=== PATIENT | female | born 1985 | race Caucasian/White ===

== ENCOUNTER 2016-06-29 05:10 | Inpatient (IN) | payer OTHER ==
[~2016-06-29] VITALS: Ht 160 cm; Wt 156.5 kg
[~2016-06-29 05:10] MED LIST: ACET325T96 PO; PRENTAB26 PO
[2016-06-29] MEDS ORDERED: LACTATED RINGER'S 1000ML 1,000 ML IV PRN (06:05)
[2016-06-29] MEDS ORDERED: LACTATED RINGER'S 1000ML 1,000 ML IV SCH ×3 (06:05→22:31)
[2016-06-29] MEDS ORDERED: CEFAZOLIN IV 2,000 MG in DEXTROSE 5% 50ML 50 ML IV STA (06:09)
[2016-06-29] MEDS ORDERED: CEFAZOLIN IV 1,000 MG in DEXTROSE 5% 50ML 50 ML IV PRN (06:15)
[2016-06-29 06:22] VITALS: Ht 160 cm; Wt 156.5 kg
[2016-06-29] MEDS ORDERED: MISOPROSTOLTAB 50 MCG TAB PO STA (06:40)
[2016-06-29 07:02] LABS: HEMATOCRIT 38.3 % (37-47); MEAN CELL VOLUME 87.6 fL (80-100); MEAN CORPUSCULAR HEMOGLOBIN 30.2 pg (25-34); MEAN CORPUSCULAR HGB CONC 34.5 g/dl (32-36); MEAN PLATELET VOLUME 10.2 fL (7.4-10.4); PLATELET COUNT 305 K/uL (130-400); RED BLOOD COUNT 4.37 M/uL (4.2-5.4)
[2016-06-29 07:35] LABS: BLOOD UREA NITROGEN 6 mg/dl (7-18); BUN/CREATININE RATIO 13.9 (10-20); CALCIUM 9.2 mg/dl (8.5-10.1); CARBON DIOXIDE 23 mmol/L (21-32); CHLORIDE 110 mmol/L (98-107); CREATININE 0.43 mg/dl (0.60-1.20); GLUCOSE 94 mg/dl (70-99); POTASSIUM 4.3 mmol/L (3.5-5.1); SODIUM 141 mmol/L (136-145)
[2016-06-29 07:38] LABS: ALB/GLOB RATIO 0.6 (0.9-2); ALKALINE PHOSPHATASE 107 U/L (45-117); ALT/SGPT 18 U/L (12-78); AST/SGOT 13 U/L (15-37)
[2016-06-29 08:21] LABS: BENZODIAZEPINE, URINE NEG (NEG); COCAINE,URINE NEG (NEG); PHENCYCLIDINE, URINE NEG (NEG)
--- NOTE | 2016-06-29 08:43 | Medical Student: [facility] ---
Med Student History & Physical Date of Service June 29, 2016. Chief Complaint LABOR History of Present Illness Source: patient Patient's is a with an ARMINDA of 06/28 by LMP at 40 weeks gestation Water broke at 4:30am 06/29 (test kit done at home was positive for amniotic fluid). Has not had care since 02/11 at 20 weeks gestation. 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: 15 LMP 09/22/15 No hx of abnormal pap or STDs Past Surgical History Hx of surgical leg repair (R) - increased swelling since accident as a teen Social History Smoking Status: Former Smoker Alcohol Use: none Drug Use: none Allergies Coded Allergies: Amoxicillin (Verified Allergy, Unknown, ., 06/29/16) Banana (Verified Allergy, Unknown, ., 06/29/16) Clarithromycin (Verified Allergy, Unknown, ., 06/29/16) Penicillins (Verified Allergy, Unknown, ., 06/29/16) Home Medications Acetaminophen Tab (Tylenol), 650 MG PO Q6 PRN for Pain Multivit/Min/Iron/Fol Ac/Pren ( Vitamin), 1 TAB PO DAILY Review of Systems Constitutional: No chills, No fever Respiratory: No cough Cardiovascular: No chest pain Abdomen: No nausea, No pain, No vomiting Genitourinary - Female: No dysuria Physical Exam Vital Signs: Afebrile 155-167 systolic, 112-96 diastolic (167/96 most recent) HR 10-117 (102 most recent) RR 20 General Appearance: WD/WN, no apparent distress Head: normocephalic, atraumatic Respiratory/Chest: lungs clear, normal breath sounds, no respiratory distress Cardiovascular: regular rate, rhythm, no edema Abdomen / GI: normal bowel sounds, non tender, soft Extremities: no calf tenderness, + pedal edema (+2) Monitoring External Monitor: Initially presented with category 1 strip (moderate variability, accels present , no decelerations) Laboratory Results 06/29/16 06:30 06/29/16 06:30 Test 06/29/16 05:55 06/29/16 06:30 Red Blood Count 4.37 M/uL (4.2-5.4) Mean Corpuscular Volume 87.6 fL (80-100) Mean Corpuscular Hemoglobin 30.2 pg (25-34) Mean Corpuscular Hemoglobin Concent 34.5 g/dl (32-36) RDW Standard Deviation 45.7 fL (36.4-46.3) RDW Coefficient of Variation 14.3 % (11.5-14.5) Mean Platelet Volume 10.2 fL (7.4-10.4) Anion Gap 8.0 mmol/L (3-11) Est Creatinine Clear Calc Drug Dose 286.5 ml/min Estimated GFR () > 150.0 Estimated GFR (Non- 137.4 BUN/Creatinine Ratio 13.9 (10-20) Calcium Level 9.2 mg/dl (8.5-10.1) Total Bilirubin 0.4 mg/dl (0.2-1) Aspartate Amino Transf (AST/SGOT) 13 U/L (15-37) Alanine Aminotransferase (ALT/SGPT) 18 U/L (12-78) Alkaline Phosphatase 107 U/L (45-117) Total Protein 6.7 gm/dl (6.4-8.2) Albumin 2.6 gm/dl (3.4-5.0) Globulin 4.1 gm/dl (2.5-4.0) Albumin/Globulin Ratio 0.6 (0.9-2) Assessment and Plan Patient is a 30 y/o at 40 weeks GA beginning labor. tracing Category 1 Admit pt to L&D, continue monitoring and toco.
[2016-06-29] MEDS ORDERED: LACTATED RINGER'S 1000ML 500 ML IV PRN ×2 (13:05→23:11)
[2016-06-29] MEDS ORDERED: OXYTOCIN 30 UNITS/500ML NSS IV PRN (13:15)
[2016-06-29] MEDS ORDERED: BUTORPHANOL TARTRATE 1 MG/ML VIAL IV PRN (19:15)
[2016-06-29] MEDS ORDERED: BUTORPHANOL TARTRATE 1 MG/ML VIAL ONE (19:26)
[2016-06-29] MEDS ORDERED: CITRIC ACID/SODIUM CITRATE 15 ML UDC ONE (21:02)
[2016-06-29] MEDS ORDERED: MoRPHine SULFATE PF 1 MG/ML 10 ML AMP/VIAL ONE (21:03)
[2016-06-29] MEDS ORDERED: FENTANYL CITRATE INJ 50 MCG/1 ML 2 ML VIAL ONE (21:03)
[2016-06-29] MEDS ORDERED: OXYTOCIN INJ 10 UNITS/ML VIAL ONE (21:08)
[2016-06-29] MEDS ORDERED: CITRIC ACID/SODIUM CITRATE 15 ML UDC PO STA (21:14)
[2016-06-29] MEDS ORDERED: CEFAZOLIN IV 3,000 MG in DEXTROSE 5% 50ML 50 ML IV STA (21:14)
[2016-06-29] MEDS ORDERED: FENTANYL CITRATE INJ 50 MCG/1 ML 2 ML VIAL IV PRN (21:15)
[2016-06-29] MEDS ORDERED: KETOROLAC TROMETHAMINE 30 MG/ML VIAL IV. PRN (21:15)
[2016-06-29] MEDS ORDERED: ATROPINE SULFATE 0.1 MG/ML 5ML SYR IV PRN (21:15)
[2016-06-29] MEDS ORDERED: EpHEDrine SULFATE INJ 50 MG/ML AMP IV PRN ×2 (21:15→23:15)
[2016-06-29] MEDS ORDERED: ONDANSETRON INJ 2 MG/ML 2 ML VIAL IV PRN ×2 (21:15→23:15)
[2016-06-29] MEDS ORDERED: PHENYLEPHRINE 100MCG/ML 5ML SYR ONE (22:05)
--- NOTE | 2016-06-29 22:30 | [facility] Post Operative Brief Note ---
Immediate Operative Summary Operative Date June 29, 2016. Pre-Operative Diagnosis Failure to progress Failure to descend PROM Post-Operative Diagnosis Failure to progress Failure to descend PROM Procedure(s) Performed Primary Caesarean Section Live female child at [address] 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 Ceron Estimated Blood Loss 600ml Findings normal pelvic anatomy Specimens A: Placenta-hold B: Cord blood C: Arterial and venous cord gases Drains Cooper Anesthesia Spinal Complication(s) None Disposition L&D
[2016-06-29] MEDS ORDERED: BENZOCAINE 20% AER SPR 82.5 GM CAN EXT PRN (22:45)
[2016-06-29] MEDS ORDERED: SUPERCREAM 0.870 % 15GM JAR EXT PRN (22:45)
[2016-06-29] MEDS ORDERED: LANOLIN OINT EXT PRN ×2 (22:45)
[2016-06-29] MEDS ORDERED: HYDROCORTISONE ACETATE 25 MG SUPP PR PRN (22:45)
[2016-06-29] MEDS ORDERED: PROMETHAZINE HCL INJ 25 MG in SODIUM CHLORIDE 0.9% 50ML 50 ML IV PRN (22:45)
[2016-06-29] MEDS ORDERED: MAGNESIUM HYDROXIDE SUSP 30 ML UDC PO PRN (22:45)
[2016-06-29] MEDS ORDERED: SENNA 8.6 MG TAB PO PRN (22:45)
--- NOTE | 2016-06-29 22:59 | HISTORY & PHYSICAL EXAMINATION ---
DATE OF ADMISSION: 06/29/2016 HISTORY OF PRESENT ILLNESS: Shweta presented to labor and delivery with spontaneous rupture of membranes. She was initially 1 cm, was admitted by Dr. Hair and was 40 weeks and 1 day. Her course in was complicated by the fact that she stopped her care just after the 20-week visit. She had an ultrasound where not all of the anatomy was fully visualized and then decided not to do further followup. I am unsure why this was the case. Because of this, we do not have full testing and the patient is also morbidly obese at 349 pounds. Group B strep swab was performed but she was treated on spec as it was decided that with an unknown status of rupture of membranes that she was treated with Ancef. Her labor progressed very slowly. She initially got to 2 and then 2.5 cm. She eventually reached 3-4 cm, but with an IUPC and scalp clip, we documented adequate contractions for well over 4 hours with the IUPC and still there was no descent of the baby, it remained high at -2 station and 3-4 cm. At this stage, I offered the patient a . I did offer the option of continuing labor as well and discussed the risks and benefits of both. PAST HISTORY: Has been before but no prior deliveries before. MEDICAL HISTORY: She is morbidly obese. REVIEW OF SYSTEMS: Negative. FAMILY HISTORY: Negative. SOCIAL HISTORY: Nonsmoker, nondrinker. PHYSICAL EXAMINATION: VITAL SIGNS: Stable. She is afebrile. CHEST: Clear. CARDIOVASCULAR: Normal rate and rhythm. No audible murmur. ABDOMEN: Gravid. CERVIX: 3-4 cm and -2 station. heart rate tones category 1. IMPRESSION AND PLAN: Reviewed the option and actually recommend at this stage. This is for failure to progress and failure to descend in the pelvis, I think this is a large baby. I offered the option of continuing labor, discussed the increased infection risk with this. Discussed the risks of including infection, injury to bowel, bladder, ureter, vessels, baby, deep vein thrombosis, and pulmonary embolus. Discussed increased risk with prolonged rupture of membranes and with morbid obesity, especially the risks of infection. Discussed risks, benefits and alternatives. The patient wishes to proceed with a section and we will make arrangements for this. [facility]
[2016-06-29] MEDS ORDERED: NALOXONE HCL INJ 1 MG in SODIUM CHLORIDE 0.9% 1000ML 1,000 ML IV PRN (23:11)
[2016-06-29] MEDS ORDERED: SODIUM CHLORIDE 0.9% 1000ML 1,000 ML IV PRN (23:11)
[2016-06-29] MEDS ORDERED: NALOXONE HCL INJ 0.08 MG in SYRINGE 1.8 ML IV PRN (23:11)
[2016-06-29] MEDS ORDERED: DC INTRASPINAL MORPHINE SCH (23:15)
[2016-06-29] MEDS ORDERED: NALBUPHINE HCL INJ 10 MG/ML AMP IV PRN (23:15)
[2016-06-29] MEDS ORDERED: NO NARCOTICS OR SEDATIVES SCH (23:15)
[2016-06-29] MEDS ORDERED: MoRPHine SULFATE PF 1 MG/ML 10 ML AMP/VIAL EPI PRN (23:15)
[2016-06-29] MEDS ORDERED: DiphenhydrAMINE HCL 50 MG/ML VIAL IV PRN (23:15)
[2016-06-29] MEDS ORDERED: NALOXONE HCL 0.4 MG/1 ML VIAL/CARP IV PRN (23:15)
[2016-06-29] MEDS ORDERED: MEPERIDINE HCL 25 MG/ML CARP IV PRN (23:15)
--- NOTE | 2016-06-29 23:15 | Anesthesiology Progress Note ---
Anesthesia Post Op Note Date & Time June 29, 2016 at 23:16 Vital Signs Pain Intensity: 8.0 Notes Mental Status: alert / awake / arousable, participated in evaluation Pt Amnestic to Procedure: Yes Nausea / Vomiting: adequately controlled Pain: adequately controlled Airway Patency, RR, SpO2: stable & adequate BP & HR: stable & adequate Hydration State: stable & adequate Neuraxial Anesthesia: was administered, sensory block is resolving Anesthetic Complications: no major complications apparent
[2016-06-30] VITALS (22 sets, daily range): BP systolic 110–137; BP diastolic 73–87; PULSE 90–101; TEMP 36.5–36.8; O2SAT 91–100
[2016-06-30] MEDS: OXYTOCIN INJ 20 UNITS in LACTATED RINGER'S 1000ML 1,000 ML IV SCH ×2 (00:11→08:55)
--- NOTE | 2016-06-30 00:31 | OPERATIVE REPORT ---
DATE OF OPERATION: 06/29/2016 PREOPERATIVE DIAGNOSIS: Premature rupture of membranes, failure to progress, failure to descend in labor. POSTOPERATIVE DIAGNOSES: Same. PROCEDURE: Primary low segment section. SURGEON: Dr. Villavicencio. ROPEMAN: Dr. Ceron. ESTIMATED BLOOD LOSS: 600 mL FINDINGS: Normal pelvic anatomy. SPECIMENS: Cord blood, cord gases. DRAINS: Cooper catheter. ANESTHETIC: Spinal. COMPLICATIONS: None. DISPOSITION: Labor and delivery. DESCRIPTION OF PROCEDURE: The patient was given a spinal anesthetic by Dr. Borges, a Cooper catheter inserted by nursing. She was prepped and draped in supine position with a leftward tilt. Three grams Ancef were given preoperatively and multimedia engineer out performed. Pfannenstiel skin incision made with scalpel, dissecting down through the subcutaneous fat to the fascia in the midline. The fascia was then dissected laterally with curved Mayos and fascia was released superiorly and inferiorly from the rectus muscles. Rectus muscles were then split. Peritoneal cavity entered in a superior location and then opening of the peritoneal cavity enlarged to allow exposure. Bladder retractor placed. Metzenbaums used to dissect away the bladder flap and then bladder retractor replaced. A low transverse incision made with the scalpel. Entry into the uterus was done bluntly with a hemostat and then opening of the incision of the hysterotomy site was done manually, bluntly with the steam conditioning operator's fingers. Baby was delivered without difficulty by flexing the head, there was some thin meconium, and also by pressure on the abdomen. Head was delivered, mouth and nares suctioned with bulb. There was no nuchal cord. Baby was then delivered by gentle traction. No excessive force. A live vigorous infant. Cord clamped and cut. Cord gases obtained. Cord blood obtained. Placenta removed. IV Pitocin started. Uterus exteriorized. We ensured, with a moist lap, that all placental material had been removed. Then uterus closed in the usual fashion, a running 0 Monocryl, locked, and a second reinforcing non-locked 0 Monocryl. After generous irrigation and suction the cul-de-sac and bladder flap regions were re-inspected. Hemostasis was excellent. Uterus placed back in the peritoneal cavity and reinspected and hemostatic. Fascia closed with 0 Vicryl, subcutaneous fat irrigated and closed with 2-0 Vicryl, skin closed with 4-0 subcuticular Monocryl, Steri-Strips applied. Sponge and instrument counts correct. Urine was clear at the end of procedure. I attest to the content of the Intraoperative Record and any orders documented therein. Any exceptio ns are noted below.
[2016-06-30 06:37] LABS: BASO % 0.2 %; BASO ABS # 0.02 K/uL (0-0.2); COMPLETE YES; EOS % 0.2 %; HEMATOCRIT 35.9 % (37-47); IG% 0.3 %; LYMPH % 24.3 %; LYMPH ABS # 3.14 K/uL (1.2-3.4); MEAN CELL VOLUME 88.2 fL (80-100); MEAN CORPUSCULAR HEMOGLOBIN 29.7 pg (25-34); MEAN CORPUSCULAR HGB CONC 33.7 g/dl (32-36); MEAN PLATELET VOLUME 9.9 fL (7.4-10.4); MONO % 8.8 %; NEUT % 66.2 %; PLATELET COUNT 245 K/uL (130-400); RED BLOOD COUNT 4.07 M/uL (4.2-5.4); WHITE BLOOD COUNT 12.94 K/uL (4.8-10.8)
--- NOTE | 2016-06-30 07:18 | Progress Note ---
Subjective June 30, 2016. Subjective conversation w/ patient, physical exam, lab review Ambulation: limited ambulation Voiding: garcia catheter in place Passing Gas: No Diet Tolerance: Regular Diet Lochia: Moderate Feeding Type: Breast Feeding Pain: improves with med Comment: Patient was seen at the bedside. No acute event overnight. Review of Systems Constitutional: No fever Respiratory: No cough, No shortness of breath Cardiac: No chest pain Breast: No breast lump Abdomen: No nausea, No pain, No vomiting Denies headache Objective Vital Signs Date Time Temp Pulse Resp B/P Pulse Ox O2 Delivery O2 Flow Rate FiO2 06/30/16 06:35 18 91 06/30/16 05:20 18 93 06/30/16 04:30 36.6 96 18 124/81 97 Room Air 06/30/16 04:00 18 94 06/30/16 03:05 18 92 06/30/16 02:10 20 91 06/30/16 02:10 36.8 90 20 137/83 91 Room Air 06/30/16 01:45 18 91 06/30/16 00:45 93 Room Air 06/30/16 00:45 18 93 06/30/16 00:45 36.7 92 18 110/73 93 Room Air 06/30/16 00:45 93 Room Air Physical Exam General Appearance: WELL-APPEARING, WD/WN, NO APPARENT DISTRESS, obese Respiratory/Chest: chest non-tender, lungs clear, normal breath sounds, no respiratory distress Cardiovascular: regular rate, rhythm Abdomen: normal bowel sounds, non tender, soft Fundus: Firm, Tender, Relation to Umbilicus (difficult to palpate) Incision Description: Clean, Dry & Intact Extremities: non-tender, no calf tenderness Laboratory Results Last 24 Hours Test 06/30/16 06:21 White Blood Count 12.94 K/uL Red Blood Count 4.07 M/uL Hemoglobin 12.1 g/dL Hematocrit 35.9 % Mean Corpuscular Volume 88.2 fL Mean Corpuscular Hemoglobin 29.7 pg Mean Corpuscular Hemoglobin Concent 33.7 g/dl Platelet Count 245 K/uL Mean Platelet Volume 9.9 fL Neutrophils (%) (Auto) 66.2 % Lymphocytes (%) (Auto) 24.3 % Monocytes (%) (Auto) 8.8 % Eosinophils (%) (Auto) 0.2 % Basophils (%) (Auto) 0.2 % Neutrophils # (Auto) 8.57 K/uL Lymphocytes # (Auto) 3.14 K/uL Monocytes # (Auto) 1.14 K/uL Eosinophils # (Auto) 0.03 K/uL Basophils # (Auto) 0.02 K/uL RDW Standard Deviation 45.9 fL RDW Coefficient of Variation 14.2 % Immature Granulocyte % (Auto) 0.3 % Immature Granulocyte # (Auto) 0.04 K/uL Medications Current Inpatient Medications Medications (Trade) Dose Ordered Sig/Anjum Route Start Time Stop Time Status Last Admin Dose Admin Oxytocin 30 units 30 units UD PRN IV 06/29/16 13:15 07/29/16 13:14 06/29/16 13:38 30 UNITS Lactated Ringer's 1,000 ml @ 1,000 mls/hr Q1H IV 06/29/16 20:41 07/29/16 20:40 Oxytocin 20 units/ Lactated Ringer's 1,002 ml @ 125 mls/hr Q8H1M IV 06/29/16 22:31 07/29/16 22:30 06/30/16 00:11 125 MLS/HR Lactated Ringer's (Lr 1000ml) 1,000 ml @ 125 mls/hr Q8H IV 06/29/16 22:31 07/29/16 22:30 Ketorolac Tromethamine (Toradol Inj) 30 mg Q6H PRN IV. 06/30/16 16:00 07/05/16 15:59 Meperidine HCl (Demerol Inj) 50 mg Q4H PRN IV 06/30/16 16:00 07/14/16 15:59 Meperidine HCl (Demerol Inj) 75 mg Q4H PRN IV 06/30/16 16:00 07/14/16 15:59 Oxycodone/ Acetaminophen (Percocet 5-325mg Tab) 1 tab Q4H PRN PO 06/30/16 16:00 07/14/16 15:59 Oxycodone/ Acetaminophen (Percocet 5-325mg Tab) 2 tab Q4H PRN PO 06/30/16 16:00 07/14/16 15:59 Ibuprofen 600 mg 600 mg Q4H PRN PO 06/29/16 22:45 07/29/16 22:44 Promethazine HCl/ Sodium Chloride (Phenergan Inj/ Nss 50ml) 51 ml @ 204 mls/hr Q4H PRN IV 06/29/16 22:45 07/29/16 22:44 Ondansetron HCl (Zofran Inj) 4 mg Q4H PRN IV 06/30/16 16:00 07/30/16 15:59 Prenat Multivit/ [place]/Iron/Folic Ac ( Vitamin Tab) 1 tab DAILY PO 06/30/16 08:00 07/30/16 07:59 Bisacodyl (Dulcolax Tab) 5 mg HS ONCE PO 06/30/16 22:00 06/30/16 22:01 Bisacodyl (Dulcolax Supp) 10 mg PRN PRN MA 07/01/16 22:45 07/31/16 22:44 Docusate Sodium (coLACE CAP) 100 mg BID PO 06/30/16 08:00 07/30/16 07:59 Magnesium Hydroxide (Milk Of Magnesia Susp) 30 ml HS PRN PO 06/29/16 22:45 07/29/16 22:44 Cocaine HCl (Supercream 0.870% Cr) BID PRN EXT 06/29/16 22:45 07/13/16 22:44 Lanolin (Lanolin Oint) PRN PRN EXT 06/29/16 22:45 07/29/16 22:44 Hydrocortisone Acetate (Anusol Hc Supp) 25 mg BID PRN MA 06/29/16 22:45 07/29/16 22:44 Benzocaine (Dermoplast Aero Spr) 1 appln PRN PRN EXT 06/29/16 22:45 07/29/16 22:44 Zolpidem Tartrate (Ambien Tab) 5 mg HSZ PRN PO 06/30/16 16:00 07/30/16 15:59 Simethicone (Mylicon Chew Tab) 80 mg QID PO 06/30/16 08:00 07/30/16 08:59 Diphenhydramine HCl (Benadryl Cap) 25 mg QID PRN PO 06/30/16 16:00 07/30/16 15:59 Diphenhydramine HCl (Benadryl Inj) 25 mg QID PRN IV 06/30/16 16:00 07/30/16 15:59 Senna (Senokot Tab) 17.2 mg HS PRN PO 06/29/16 22:45 07/29/16 22:44 Naloxone HCl (Narcan Inj) 0.1 mg UD PRN IV 06/29/16 23:15 06/30/16 16:00 Diphenhydramine HCl (Benadryl Inj) 25 mg Q6H PRN IV 06/29/16 23:15 06/30/16 16:00 Nalbuphine HCl 5 mg 5 mg Q10M PRN IV 06/29/16 23:15 06/30/16 16:00 Naloxone HCl/ Sodium Chloride (Narcan Inj/Nss 1000ml) 1,002.5 ml @ 50 mls/hr Q20H3M PRN IV 06/29/16 23:11 06/30/16 16:00 Ondansetron HCl (Zofran Inj) 4 mg Q6H PRN IV 06/29/16 23:15 06/30/16 16:00 Ketorolac Tromethamine (Toradol Inj) 30 mg Q6H PRN IV. 06/29/16 23:15 06/30/16 16:00 Meperidine HCl (Demerol Inj) 25 mg Q15M PRN IV 06/29/16 23:15 06/30/16 16:00 Miscellaneous Information (Dc Intraspinal Morphine) 1 ea ONE N/A 06/29/16 23:15 06/30/16 16:00 Miscellaneous Information 1 ea 1 ea UD N/A 06/29/16 23:15 06/30/16 16:00 Naloxone HCl 0.08 mg/Syringe 2 ml @ 1 mls/min Q2M PRN IV 06/29/16 23:11 06/30/16 16:00 Lactated Ringer's (Lr 1000ml) 500 ml @ 999 mls/hr Q31M PRN IV 06/29/16 23:11 06/30/16 16:00 Ephedrine Sulfate (EpHEDrine SULFATE INJ) 10 mg Q5M PRN IV 06/29/16 23:15 06/30/16 16:00 Morphine Sulfate TODAY PRN EPI 06/29/16 23:15 Sodium Chloride (Nss 1000ml) 1,000 ml @ 15 mls/hr Q24H PRN IV 06/29/16 23:11 06/30/16 16:00 Assessment and Plan Post-Op Day#: 1 Continue Routine Care: A/P: This is a 30 y/o female, , s/p . She is ambulating and clinically stable. Plan: - Vitals signs are reviewed and WNL (Tmax 36.8 ) - Last Hgb is 12.1 - Blood type O+, GBS unknown, Rubella Immune - Routine care - Encourage ambulation, monitor and control pain with medication as needed , continue with regular diet as tolerated and monitor lochia - Stool softeners and sitz bath recommended - Encourage breast feeding and educate about breast feeding Resident Physician Supervision Note: I interviewed and examined the patient. Discussed with Dr. Kang and agree with findings and plan as documented in the note. Any exceptions or clarifications are listed here: [None] Documented By: Marty Villavicencio
[2016-06-30] MEDS: KETOROLAC TROMETHAMINE 30 MG/ML VIAL IV. PRN ×2 (07:44→15:45)
[2016-06-30] MEDS: SIMETHICONE 80 MG CHEW PO SCH ×4 (08:55→19:08)
[2016-06-30] MEDS: DOCUSATE SODIUM 100 MG CAP PO SCH ×2 (08:55→19:08)
[2016-06-30] MEDS: PRENATAL VITAMIN TAB PO SCH (08:56)
[2016-06-30] MEDS ORDERED: OXYCODONE/ACETAMINOPHEN 5-325 TAB PO PRN (16:00)
[2016-06-30] MEDS ORDERED: KETOROLAC TROMETHAMINE 30 MG/ML VIAL IV. PRN (16:00)
[2016-06-30] MEDS ORDERED: DiphenhydrAMINE HCL 50 MG/ML VIAL IV PRN (16:00)
[2016-06-30] MEDS ORDERED: MEPERIDINE HCL 50 MG/ML CARP IV PRN ×2 (16:00)
[2016-06-30] MEDS ORDERED: ONDANSETRON INJ 2 MG/ML 2 ML VIAL IV PRN (16:00)
[2016-06-30] MEDS ORDERED: ZOLPIDEM TARTRATE 5 MG TAB PO PRN (16:00)
[2016-06-30] MEDS: OXYCODONE/ACETAMINOPHEN 5-325 TAB PO PRN (20:23)
[2016-06-30] MEDS ORDERED: BISACODYL 5 MG TABEC PO ONE (22:00)
[2016-07-01 06:40] LABS: HEMATOCRIT 36.6 % (37-47)
--- NOTE | 2016-07-01 06:51 | Progress Note ---
Subjective July 01, 2016. Subjective conversation w/ patient, physical exam, lab review Ambulation: ambulating normally Voiding: no voiding problems Passing Gas: Yes Diet Tolerance: Regular Diet Lochia: Small Feeding Type: Breast Feeding Pain: discomfort Comment: Patient was seen at the bedside. No acute event overnight. Review of Systems Constitutional: No fever Respiratory: No cough, No shortness of breath Cardiac: No chest pain Breast: No breast lump Abdomen: No nausea, No pain, No vomiting Female : No dysuria, No urinary frequency Denies headache Objective Vital Signs Date Time Temp Pulse Resp B/P Pulse Ox O2 Delivery O2 Flow Rate FiO2 06/30/16 23:50 36.5 96 18 114/79 97 Room Air 06/30/16 23:50 97 Room Air 06/30/16 19:15 36.7 101 18 113/79 97 Room Air 06/30/16 16:00 36.6 99 18 132/75 95 Room Air 06/30/16 15:25 Room Air 06/30/16 15:25 16 100 06/30/16 14:35 16 100 06/30/16 13:35 16 100 06/30/16 12:35 16 97 06/30/16 12:00 36.6 98 18 132/87 96 Room Air 06/30/16 11:35 16 96 06/30/16 10:35 16 97 06/30/16 09:35 18 96 06/30/16 08:35 18 97 06/30/16 08:12 36.7 92 17 124/80 97 Room Air 06/30/16 07:25 16 96 06/30/16 07:25 96 Room Air Physical Exam General Appearance: WELL-APPEARING, WD/WN, NO APPARENT DISTRESS, obese Respiratory/Chest: chest non-tender, lungs clear, normal breath sounds, no respiratory distress Cardiovascular: regular rate, rhythm Abdomen: normal bowel sounds, non tender, soft Fundus: Firm, Non-Tender, Relation to Umbilicus (about 1cm below U, difficult to palpate) Incision Description: Clean, Dry & Intact Extremities: non-tender, no calf tenderness Laboratory Results Last 24 Hours Test 07/01/16 06:05 Hemoglobin 12.1 g/dL Hematocrit 36.6 % Medications Current Inpatient Medications Medications (Trade) Dose Ordered Sig/Anjum Route Start Time Stop Time Status Last Admin Dose Admin Oxytocin 30 units 30 units UD PRN IV 06/29/16 13:15 07/29/16 13:14 06/29/16 13:38 30 UNITS Lactated Ringer's 1,000 ml @ 1,000 mls/hr Q1H IV 06/29/16 20:41 07/29/16 20:40 Oxytocin 20 units/ Lactated Ringer's 1,002 ml @ 125 mls/hr Q8H1M IV 06/29/16 22:31 07/29/16 22:30 06/30/16 08:55 125 MLS/HR Lactated Ringer's (Lr 1000ml) 1,000 ml @ 125 mls/hr Q8H IV 06/29/16 22:31 07/29/16 22:30 Ketorolac Tromethamine (Toradol Inj) 30 mg Q6H PRN IV. 06/30/16 16:00 07/05/16 15:59 Meperidine HCl (Demerol Inj) 50 mg Q4H PRN IV 06/30/16 16:00 07/14/16 15:59 Meperidine HCl (Demerol Inj) 75 mg Q4H PRN IV 06/30/16 16:00 07/14/16 15:59 Oxycodone/ Acetaminophen (Percocet 5-325mg Tab) 1 tab Q4H PRN PO 06/30/16 16:00 07/14/16 15:59 06/30/16 20:23 1 TAB Oxycodone/ Acetaminophen (Percocet 5-325mg Tab) 2 tab Q4H PRN PO 06/30/16 16:00 07/14/16 15:59 Ibuprofen 600 mg 600 mg Q4H PRN PO 06/29/16 22:45 07/29/16 22:44 Promethazine HCl/ Sodium Chloride (Phenergan Inj/ Nss 50ml) 51 ml @ 204 mls/hr Q4H PRN IV 06/29/16 22:45 07/29/16 22:44 Ondansetron HCl (Zofran Inj) 4 mg Q4H PRN IV 06/30/16 16:00 07/30/16 15:59 Prenat Multivit/ [place]/Iron/Folic Ac ( Vitamin Tab) 1 tab DAILY PO 06/30/16 08:00 07/30/16 07:59 06/30/16 08:56 1 TAB Bisacodyl (Dulcolax Supp) 10 mg PRN PRN ID 07/01/16 22:45 07/31/16 22:44 Docusate Sodium (coLACE CAP) 100 mg BID PO 06/30/16 08:00 07/30/16 07:59 06/30/16 19:08 100 MG Magnesium Hydroxide (Milk Of Magnesia Susp) 30 ml HS PRN PO 06/29/16 22:45 07/29/16 22:44 Cocaine HCl (Supercream 0.870% Cr) BID PRN EXT 06/29/16 22:45 07/13/16 22:44 Lanolin (Lanolin Oint) PRN PRN EXT 06/29/16 22:45 07/29/16 22:44 Hydrocortisone Acetate (Anusol Hc Supp) 25 mg BID PRN ID 06/29/16 22:45 07/29/16 22:44 Benzocaine (Dermoplast Aero Spr) 1 appln PRN PRN EXT 06/29/16 22:45 07/29/16 22:44 Zolpidem Tartrate (Ambien Tab) 5 mg HSZ PRN PO 06/30/16 16:00 07/30/16 15:59 Simethicone (Mylicon Chew Tab) 80 mg QID PO 06/30/16 08:00 07/30/16 08:59 06/30/16 19:08 80 MG Diphenhydramine HCl (Benadryl Cap) 25 mg QID PRN PO 06/30/16 16:00 07/30/16 15:59 Diphenhydramine HCl (Benadryl Inj) 25 mg QID PRN IV 06/30/16 16:00 07/30/16 15:59 Senna (Senokot Tab) 17.2 mg HS PRN PO 06/29/16 22:45 07/29/16 22:44 Morphine Sulfate (Duramorph Pf Inj) TODAY PRN EPI 06/29/16 23:15 Assessment and Plan Post-Op Day#: 2 Continue Routine Care: A/P: This is a 30 y/o female, , s/p . She is ambulating and clinically stable. Plan: - Vitals signs are reviewed and WNL (Tmax 36.7 ) - Last Hgb is 12.1 - Blood type O+, GBS unknown, Rubella Immune - Routine care - Encourage ambulation, monitor and control pain with medication as needed , continue with regular diet as tolerated and monitor lochia - Stool softeners and sitz bath recommended - Encourage breast feeding and educate about breast feeding Resident Physician Supervision Note: I was present with Dr. Warner during the history and exam. I discussed the case with the resident and agree with the findings and plan as documented in the note. Any exceptions or clarifications are listed here: doing well, enc ambulation in halls. routine care. Documented By: Radha Ceron
[2016-07-01 07:23] VITALS: BP 136/87; PULSE 116; TEMP 36.5; O2SAT 95
[2016-07-01] MEDS: IBUPROFEN 600 MG TAB PO PRN ×3 (07:47→18:47)
[2016-07-01] MEDS: PRENATAL VITAMIN TAB PO SCH (07:47)
[2016-07-01] MEDS: DOCUSATE SODIUM 100 MG CAP PO SCH ×2 (07:47→20:27)
[2016-07-01] MEDS: OXYCODONE/ACETAMINOPHEN 5-325 TAB PO PRN ×3 (07:48→18:47)
[2016-07-01] MEDS: SIMETHICONE 80 MG CHEW PO SCH ×4 (07:49→20:27)
[2016-07-01 17:00] VITALS: BP 131/83; PULSE 96; TEMP 37.2; O2SAT 97
[2016-07-01] MEDS ORDERED: BISACODYL 10 MG SUPP PR PRN (22:45)
[2016-07-02 01:01] VITALS: BP 133/80; PULSE 95; TEMP 36.4; O2SAT 95
[2016-07-02] MEDS: IBUPROFEN 600 MG TAB PO PRN (06:17)
[2016-07-02] MEDS: OXYCODONE/ACETAMINOPHEN 5-325 TAB PO PRN (06:18)
--- NOTE | 2016-07-02 07:04 | Progress Note ---
Subjective July 02, 2016. Subjective conversation w/ patient, physical exam Voiding: no voiding problems Diet Tolerance: Regular Diet Feeding Type: Breast Feeding Objective Vital Signs Date Time Temp Pulse Resp B/P Pulse Ox O2 Delivery O2 Flow Rate FiO2 07/02/16 01:03 Room Air 07/02/16 01:01 36.4 95 18 133/80 95 Room Air 07/01/16 17:00 Room Air 07/01/16 17:00 37.2 96 18 131/83 97 Room Air 07/01/16 08:00 Room Air 07/01/16 07:23 36.5 116 20 136/87 95 Room Air Physical Exam General Appearance: WELL-APPEARING, NO APPARENT DISTRESS Fundus: Firm, Non-Tender Incision Description: Clean, Dry & Intact Extremities: no calf tenderness Assessment and Plan Post-Op Day#: 3 Continue Routine Care: - doing well - patient desires d/c - instructions/Rx given - f/u in 6 weeks for check
[2016-07-02] MEDS ORDERED: MTR600X PO (07:05)
[2016-07-02] MEDS ORDERED: OXYC-57 PO (07:05)
--- NOTE | 2016-07-02 07:06 | Discharge Instructions ---
Discharge Instructions Date of Service July 02, 2016. Admission Reason for Admission: LABOR Discharge Discharge Diagnosis / Problem: same Discharge Goals Goal(s): Routine recovery after Medications Continue Dispensed Medications: supercream, dermaplast Activity Recommendations Activity Limitations: as noted below . Instructions / Follow-Up Instructions / Follow-Up ACTIVITY RECOMMENDATIONS: * Gradual return to full activity over the next 2-3 weeks. * No lifting - nothing heavier than baby over the next 2-3 weeks. * Do not engage in vigorous exercise, sexual activity or sports until cleared by your physician. * Do not drive or operate any motorized equipment until cleared by your physician. * You may shower/bathe daily. MEDICATIONS: For discomfort or pain, you may use Acetaminophen (Tylenol), Ibuprofen (Advil), or Naproxen (Aleve) following the package directions. For constipation you may use Colace following the package directions. BREAST CARE: If you are not breast feeding: * Wear a supportive bra 24 hours a day for one to two weeks. * Avoid stimulating your breasts and nipples as much as possible during the first few weeks after delivery. * When taking a shower, have the warm water hit your back, not breasts. * When your breasts feel full, apply ice packs. Usually three to four times a day helps ease the discomfort. * Take a mild pain medication (Tylenol / Motrin) when you are uncomfortable. If breast feeding: * Use breast milk to lubricate nipples. Lansinoh cream may be used for sore nipples. You do not need to remove cream prior to breast feeding. If using a different brand of cream, check the label for directions regarding removal of cream prior to nursing. * Wear a supportive bra. * If having problems with breasts or breast feeding, call a behavioral health consultant or your health care provider. SPECIAL CARE INSTRUCTIONS: When you are discharged from the hospital, it is important for you to follow the instructions listed below: * During the first week at home, you should be able to care for yourself and your baby. In addition, the usual light household activities are encouraged. * Limit your activities to the way you feel. Do not try to clean the house or move furniture. Be sensible. * If you actively engage in sports and have done so up until the time of your delivery, you may resume these activities as soon as you feel able. This may take up to one month or even longer. Use good judgment. * Continue to take your vitamins for at least six weeks after the of your baby. * Your diet need not be limited unless you were on a special diet before your delivery. Breast-feeding mothers need around 2500 calories per day and at least 64-80 ounces of fluid per day (8 to 10 glasses). * You should eat foods from the four major food groups. Crash diets or fad diets are to be avoided. Eating lean meats, fresh fruits and vegetables, low-fat dairy products, high fiber foods and a regular exercise program, will help you get back to your pre- weight without putting your health at risk. * Constipation is sometimes a problem after delivery. Take a mild laxative as needed. If breast feeding, Milk of Magnesia is acceptable to use. You may use a suppository or Fleets enema. * A daily shower or tub bath is suggested. Wash incision daily with warm soapy water and pat dry. It doesn't need to be covered unless drainage is present. * A bloody vaginal discharge will usually continue until around four weeks . A small amount of bleeding may continue for as long as six weeks. Vaginal discharge changes from the bright red bleeding after delivery to pink then brownish and finally yellowish-pink before becoming white and disappearing. * Bleeding may increase with activity. Your first period may come in 4-8 weeks. If you are breast feeding, your period may be delayed even longer. * [place] (sex) can begin whenever both you and your partner feel comfortable and do not have any form of genital infection. It is recommended that you wait at least six weeks for internal and external healing to occur. If you have questions, please talk to your health care practitioner. A condom should be used to prevent infection and . * Foreplay, gentle intercourse and lubrication is very important the first several times to prevent pain. A water-based lubricant such as K-Y jelly or Astroglide may be used. * If you have RH negative blood and your baby is RH positive, you will receive RHOGAM by injection prior to discharge. The nurse will give you a card to keep with you that has the date and place that you received RHOGAM after delivery. * During your care, you had a Rubella screen done to check for the presence of rubella antibodies in your blood. If your test was negative, you will receive a Rubella vaccine prior to discharge. This vaccine may cause a fever, soreness at the injection site and flu-like symptoms. If these symptoms persist, notify your health care practitioner. is not advised for one month after a Rubella vaccine. * Verbalizes understanding of car seat law as reviewed with patient nursing. * Car Seat hand-out given and reviewed with patient by nursing. * Shaken baby information reviewed with patient by nursing. Call you doctor if: * Heavy bleeding (saturating several pads an hour) or passing clots the size of your fist. * A fever >101 degrees F (38.3 degrees C) on two occasions four hours apart and /or chills. * Unusual pain in the pelvic or vaginal areas. * Call the doctor for any increased redness, drainage or swelling around the incision and any pain unrelieved by prescribed pain medication. * "Baby Blues" lasting longer than two weeks. If you have any questions or concerns, call your health care practitioner at . FOLLOW UP VISIT: * Please call the office at to schedule a 6 week examination. It is important you keep this appointment. It is important for you to make arrangements for either yearly or twice yearly check-ups thereafter. Current Hospital Diet Patient's current hospital diet: Regular OB Diet Discharge Diet Recommended Diet: Regular OB Diet Procedures Procedures Performed: Primary Caesarean Section Live female child at 2201 Pending Studies Studies pending at discharge: no Medical Emergencies . Who to Call and When: Medical Emergencies: If at any time you feel your situation is an emergency, please call [phone] immediately. . Non-Emergent Contact Non-Emergency issues call your: Food Service Hotel [employer]ner Call Non-Emergent contact if: you have a fever, temperature is above 100.5, your pain is not controlled, your pain is worsening, wound has increased drainage, wound has increased redness . . "Provider Documentation" section prepared by Carlton Neal. . VTE Core Measure Inpt VTE Proph given/why not?: SCD's [place] Drug Monitoring Program Search Results: patient reviewed within database, no issues identified
[2016-07-02 08:00] VITALS: BP 152/90; PULSE 96; TEMP 36.5
[2016-07-02] MEDS: PRENATAL VITAMIN TAB PO SCH (08:14)
[2016-07-02] MEDS: SIMETHICONE 80 MG CHEW PO SCH ×2 (08:14→13:27)
[2016-07-02] MEDS: DOCUSATE SODIUM 100 MG CAP PO SCH (08:14)
--- NOTE | 2016-07-02 08:37 | DISCHARGE SUMMARY ---
Shweta had a section on 06/29/2016, this was for failure to progress. Operative note has been dictated and was uncomplicated. Her course in hospital was also uncomplicated. By 07/02/2016, she was assessed by Dr. Neal. At that time, she was ambulating, passing gas, had minimal vaginal bleeding, was voiding well, and her pain was well controlled. She had no extremity pain. PHYSICAL EXAMINATION: VITAL SIGNS: Stable. She was afebrile. ABDOMEN: Soft. Uterus was firm and nontender. Incision clean, dry and intact. EXTREMITIES: Negative. IMPRESSION AND PLAN: Postop day #3. Discharge instructions given. Follow up in 6 weeks and prescriptions for pain medication.
== END 2016-07-02 15:45 | disposition home or self-care (01) | DRG 765 ==
LOC: C.OPB 05:10 → C.LD 05:10 → C.OPB 06:07 → C.OBG 06-30 00:59
PROVIDERS: ADMIT Obstetrics & Gynecology; ATTEND Obstetrics & Gynecology
PROC: 10H07YZ Insertion of Other Device into Products of Conception, Via Natural or Artificial Opening (ICD-10-PCS; principal; 2016-06-29 21:11)
PROC: 10H073Z Insertion of Monitoring Electrode into Products of Conception, Via Natural or Artificial Opening (ICD-10-PCS; principal; 2016-06-29 21:11)
PROC: 4A1H7CZ Monitoring of Products of Conception, Cardiac Rate, Via Natural or Artificial Opening (ICD-10-PCS; principal; 2016-06-29 21:11)
PROC: 10D00Z1 Extraction of Products of Conception, Low, Open Approach (ICD-10-PCS; principal; 2016-06-29 21:11)
DX: O42.92 Full-term premature rupture of membranes, unspecified as to length of time between rupture and onset of labor (principal); Z68.44 Body mass index [BMI] 60.0-69.9, adult; Z37.0 Single live birth; O99.214 Obesity complicating childbirth; O48.0 Post-term pregnancy; O26.893 Other specified pregnancy related conditions, third trimester; O35.8XX0 Maternal care for other (suspected) fetal abnormality and damage, not applicable or unspecified; E66.01 Morbid (severe) obesity due to excess calories; O62.2 Other uterine inertia; O62.0 Primary inadequate contractions; O77.0 Labor and delivery complicated by meconium in amniotic fluid; Z87.891 Personal history of nicotine dependence; Z3A.40 40 weeks gestation of pregnancy

== ENCOUNTER 2017-02-20 04:56 | Emergency (ER) | payer OTHER ==
[~2017-02-20] VITALS: Ht 160 cm; Wt 164.1 kg
[~2017-02-20 04:56] MED LIST changes: +MTR600X PO; +OXYC-57 PO
[2017-02-20 05:01] VITALS: TEMP 37.2; Ht 160 cm; Wt 164.1 kg
[2017-02-20] MEDS ORDERED: FENTANYL CITRATE INJ 50 MCG/1 ML 2 ML VIAL IV STA (05:34)
[2017-02-20] MEDS ORDERED: ONDANSETRON INJ 2 MG/ML 2 ML VIAL IV STA (05:34)
[2017-02-20 05:44] LABS: BASO % 0.1 %; BASO ABS # 0.01 K/uL (0-0.2); EOS % 1.5 %; EOS ABS # 0.15 K/uL (0-0.5); HEMATOCRIT 41.1 % (37-47); IG# 0.04 K/uL (0.00-0.02); LYMPH % 20.5 %; LYMPH ABS # 1.99 K/uL (1.2-3.4); MEAN CELL VOLUME 86.2 fL (80-100); MEAN CORPUSCULAR HEMOGLOBIN 29.4 pg (25-34); MEAN CORPUSCULAR HGB CONC 34.1 g/dl (32-36); MEAN PLATELET VOLUME 9.3 fL (7.4-10.4); MONO % 4.5 %; MONO ABS # 0.44 K/uL (0.11-0.59); NEUT ABS # 7.09 K/uL (1.4-6.5); PLATELET COUNT 300 K/uL (130-400); RED CELL DISTRIBUTION WIDTH CV 13.6 % (11.5-14.5); WHITE BLOOD COUNT 9.72 K/uL (4.8-10.8)
--- NOTE | 2017-02-20 05:47 | EMERGENCY ROOM VISIT NOTE ---
History Report prepared by Aida: Ryan Faye Under the Supervision of: Dr. Genet Crawford D.O. First contact with patient: 05:01 Chief Complaint: ABDOMINAL PAIN Stated Complaint: RT. UPPER QUAD PAIN Nursing Triage Summary: pt brought to main ED from home by BLS with c/o right upper quad abd pain. pt states pain began approx 1am. states she had pain last night as well and pain was able to be controlled by ibuprofen and tonight ibuprofen did not help pain. hx c section approx 8 months ago. associates nausea. denies diarrhea or urinary symptoms. denies phm. History of Present Illness The patient is a 31 year old female who presents to the Emergency Room with complaints of persistent right upper quadrant abdominal pain that began this morning at 0100, 4.5 hours prior to arrival. The patient rates her current pain as a 8/10 in severity, but denies any radiation of the pain into her back. She notes that she had a similar episode last night, which was remedied with an Ibuprofen. The patient took an Ibuprofen this evening as well, but without relief. She is slightly nauseous currently, but denies any bowel movement/ urinary irregularities. Her father did have a cholecystectomy. 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 A total of 10 systems reviewed and were otherwise negative. Past Medical & Surgical Medical Problems: (1) 40 weeks gestation of (2) Elevated blood pressure affecting in third trimester, antepartum (3) Miscarriage (4) Rupture of membranes with clear amniotic fluid Family History Cholecystitis FHx: cholecystectomy Social History Smoking Status: Never Smoker Alcohol Use: none Drug Use: none Current/Historical Medications Scheduled Ondasetron Odt (Zofran Odt), 4 MG SL Q8 Scheduled PRN Oxycodone/Acetaminophen 5MG/325MG (Percocet 5MG/325MG), 1-2 TABS PO Q4H PRN for Pain Allergies Coded Allergies: Amoxicillin (Verified Allergy, Unknown, ., 06/29/16) Banana (Verified Allergy, Unknown, ., 06/29/16) Clarithromycin (Verified Allergy, Unknown, ., 06/29/16) Penicillins (Verified Allergy, Unknown, ., 06/29/16) Physical Exam Vital Signs Date Time Temp Pulse Resp B/P (MAP) Pulse Ox O2 Delivery O2 Flow Rate FiO2 02/20/17 08:14 94 22 168/118 98 02/20/17 06:15 74 18 180/99 98 Room Air 02/20/17 05:01 37.2 87 18 172/112 99 Room Air Physical Exam GENERAL: Obese. alert, well nourished, no distress, non-toxic EYE EXAM: normal conjunctiva, PERRL and EOM's grossly intact OROPHARYNX: no exudate, no erythema, lips, buccal mucosa, and tongue normal and mucous membranes are moist NECK: supple, no nuchal rigidity, no adenopathy, non-tender LUNGS: Clear to auscultation. Normal chest wall mechanics HEART: no murmurs, S1 normal and S2 normal ABDOMEN: abdomen soft, with mild RUQ tenderness to palpation, normo-active bowel sounds, no masses, no rebound or guarding. BACK: Back is symmetrical on inspection and there is no deformity, no midline tenderness, no CVA tenderness. SKIN: no rashes and no bruising UPPER EXTREMITIES: upper extremities are grossly normal. LOWER EXTREMITIES: No pitting edema. NEURO EXAM: Normal sensorium Medical Decision & Procedures ER Provider Diagnostic Interpretation: Radiology results have been interpreted by the radiologist and reviewed by me. ABDOMINAL ULTRASOUND, RIGHT UPPER QUADRANT HISTORY: Right upper quadrant abdominal pain. COMPARISON: None. FINDINGS: Exam is mildly compromised by suboptimal penetration. Hepatic echogenicity may be mildly increased. There is no biliary ductal dilatation. The common bile duct measures 4 mm in caliber. There are multiple gallstones within the gallbladder. No sonographic Saha sign was elicited. Mild gallbladder wall thickening is noted. The gallbladder wall measures 4 mm in thickness. The pancreatic body is normal while the head and tail are obscured. There is no right hydronephrosis. IMPRESSION: 1. Cholelithiasis and mild gallbladder wall thickening. No sonographic Saha sign. A nuclear medicine hepatobiliary scan could be obtained as clinically indicated to evaluate for acute cholecystitis. 2. No biliary ductal dilatation. Electronically signed by: Rodrigo Souza M.D. 02/20/2017 6:39 AM Dictated Date/Time: 02/20/2017 6:37 AM Laboratory Results 02/20/17 05:20 Red Blood Count 4.77, Mean Corpuscular Volume 86.2, Mean Corpuscular Hemoglobin 29.4, Mean Corpuscular Hemoglobin Concent 34.1, Mean Platelet Volume 9.3, Neutrophils (%) (Auto) 73.0, Lymphocytes (%) (Auto) 20.5, Monocytes (%) (Auto) 4.5, Eosinophils (%) (Auto) 1.5, Basophils (%) (Auto) 0.1, Neutrophils # (Auto) 7.09, Lymphocytes # (Auto) 1.99, Monocytes # (Auto) 0.44, Eosinophils # (Auto) 0.15, Basophils # (Auto) 0.01 02/20/17 05:20 Test 02/20/17 05:20 02/20/17 06:13 White Blood Count 9.72 K/uL (4.8-10.8) Red Blood Count 4.77 M/uL (4.2-5.4) Hemoglobin 14.0 g/dL (12.0-16.0) Hematocrit 41.1 % (37-47) Mean Corpuscular Volume 86.2 fL (80-100) Mean Corpuscular Hemoglobin 29.4 pg (25-34) Mean Corpuscular Hemoglobin Concent 34.1 g/dl (32-36) Platelet Count 300 K/uL (130-400) Mean Platelet Volume 9.3 fL (7.4-10.4) Neutrophils (%) (Auto) 73.0 % Lymphocytes (%) (Auto) 20.5 % Monocytes (%) (Auto) 4.5 % Eosinophils (%) (Auto) 1.5 % Basophils (%) (Auto) 0.1 % Neutrophils # (Auto) 7.09 K/uL (1.4-6.5) Lymphocytes # (Auto) 1.99 K/uL (1.2-3.4) Monocytes # (Auto) 0.44 K/uL (0.11-0.59) Eosinophils # (Auto) 0.15 K/uL (0-0.5) Basophils # (Auto) 0.01 K/uL (0-0.2) RDW Standard Deviation 43.0 fL (36.4-46.3) RDW Coefficient of Variation 13.6 % (11.5-14.5) Immature Granulocyte % (Auto) 0.4 % Immature Granulocyte # (Auto) 0.04 K/uL (0.00-0.02) Prothrombin Time 10.2 SECONDS (9.0-12.0) Prothromb Time International Ratio 1.0 (0.9-1.1) Anion Gap 5.0 mmol/L (3-11) Est Creatinine Clear Calc Drug Dose 177.5 ml/min Estimated GFR () 132.5 Estimated GFR (Non- 114.3 BUN/Creatinine Ratio 17.0 (10-20) Calcium Level 9.0 mg/dl (8.5-10.1) Total Bilirubin 0.3 mg/dl (0.2-1) Aspartate Amino Transf (AST/SGOT) 13 U/L (15-37) Alanine Aminotransferase (ALT/SGPT) 19 U/L (12-78) Alkaline Phosphatase 44 U/L (45-117) Total Protein 7.7 gm/dl (6.4-8.2) Albumin 3.5 gm/dl (3.4-5.0) Globulin 4.2 gm/dl (2.5-4.0) Albumin/Globulin Ratio 0.8 (0.9-2) Lipase 148 U/L (73-393) Human Chorionic Gonadotropin, Qual NEG (NEG) Lactic Acid Level 1.4 mmol/L (0.4-2.0) Laboratory results per my review. Medications Administered Medications (Trade) Dose Ordered Sig/Anjum Route Start Time Stop Time Status Last Admin Dose Admin Ondansetron HCl (Zofran Inj) 4 mg NOW STAT IV 02/20/17 05:34 02/20/17 05:36 DC 02/20/17 05:40 4 MG Fentanyl Citrate (Fentanyl Inj) 100 mcg NOW STAT IV 02/20/17 05:34 02/20/17 05:36 DC 02/20/17 05:42 100 MCG Oxycodone/ Acetaminophen (Percocet 5-325mg Tab) 1 tab NOW ONCE PO 02/20/17 07:00 02/20/17 07:01 DC 02/20/17 07:29 1 TAB ED Course 0529: The patient was evaluated in room A10. A complete history and physical exam was performed. 0534: Ordered Fentanyl Citrate 100 mcg IV, Zofran 4 mg IV. 0655: I checked on the patient at this time. Her pain is still present, but improved. 0700: Ordered Oxycodone/APAP 1 tablet PO. 0740: Upon reevaluation, the patient is feeling better. I discussed the findings and the treatment plan with the patient. She verbalizes agreement and understanding. Pt tolerating po. 0810: Pt feeling improved. Medical Decision Differential diagnosis: Etiologies such as appendicitis, diverticulitis, PUD, biliary pathology, UTI, pancreatitis, obstruction, mesenteric ischemia, aortic pathology, infections, inflammatory bowel disease, renal colic, as well as others were entertained. Patient well-appearing here despite complaints. No leukocytosis or abnormal LFTs, no elevated lipase. No fevers, no n/v, pain controlled. Likely biliary colic given cholelithiasis noted on US. No other significant findings to definitively diagnose cholecystitis. I do not suspect choledocholithiasis, no evidence of pancreatitis. Doubt cardiac or pulmonary etiology of patient's symptoms and complaints. Doubt other additional GI or pathology. Discussed with patient follow-up with PCP in surgery, possible need for a nuclear study as an outpatient, symptoms to watch and return for, she verbalized understanding and was agreeable with plan. Medication Reconcilliation Current Medication List: was personally reviewed by me Blood Pressure Screening Patient's blood pressure: Normal blood pressure Impression Primary Impression: Right upper quadrant abdominal pain Additional Impressions: Cholelithiasis Biliary colic Scribe Attestation The scribe's documentation has been prepared under my direction and personally reviewed by me in its entirety. I confirm that the note above accurately reflects all work, treatment, procedures, and medical decision making performed by me. Departure Information Dispostion Home / Self-Care Prescriptions Ondasetron Odt (ZOFRAN ODT) 4 Mg Tab 4 MG SL Q8 for Nausea, #20 TAB Prov: Genet Crawford, DO 02/20/17 Oxycodone/Acetaminophen 5MG/325MG (PERCOCET 5MG/325MG) Tab 1-2 TABS PO Q4H Y for Pain, #14 TAB Prov: Genet Crawford, DO 02/20/17 Referrals No Doctor, Assigned (PCP) Patient Instructions My [facility] Additional Instructions Please call and follow-up with your family doctor and with the general surgeon listed. They may order an additional study to evaluate the gallbladder. If you have any worsening pain, develop nausea/vomiting, fevers/chills, or have any other new or concerning symptoms, please return to the emergency room. Problem Qualifiers Additional Impressions: Cholelithiasis Cholelithiasis location: gallbladder Cholecystitis presence: without cholecystitis Biliary obstruction: without biliary obstruction Qualified Codes: K80.20 - Calculus of gallbladder without cholecystitis without obstruction
[2017-02-20 05:53] LABS: ALBUMIN 3.5 gm/dl (3.4-5.0); CREATININE 0.71 mg/dl (0.60-1.20); POTASSIUM 3.9 mmol/L (3.5-5.1)
[2017-02-20 05:55] LABS: TOTAL PROTEIN 7.7 gm/dl (6.4-8.2)
--- NOTE | 2017-02-20 06:40 | DIAGNOSTIC IMAGING REPORT ---
ABDOMINAL ULTRASOUND, RIGHT UPPER QUADRANT HISTORY: Right upper quadrant abdominal pain. COMPARISON: None. FINDINGS: Exam is mildly compromised by suboptimal penetration. Hepatic echogenicity may be mildly increased. There is no biliary ductal dilatation. The common bile duct measures 4 mm in caliber. There are multiple gallstones within the gallbladder. No sonographic Saha sign was elicited. Mild gallbladder wall thickening is noted. The gallbladder wall measures 4 mm in thickness. The pancreatic body is normal while the head and tail are obscured. There is no right hydronephrosis. IMPRESSION: 1. Cholelithiasis and mild gallbladder wall thickening. No sonographic Saha sign. A nuclear medicine hepatobiliary scan could be obtained as clinically indicated to evaluate for acute cholecystitis. 2. No biliary ductal dilatation. Electronically signed by: Rodrigo Souza M.D. 02/20/2017 6:39 AM Dictated Date/Time: 02/20/2017 6:37 AM
[2017-02-20] MEDS ORDERED: OXYCODONE/ACETAMINOPHEN 5-325 TAB PO ONE (07:00)
[2017-02-20] MEDS ORDERED: ONDA4TAB10 SL (07:59)
[2017-02-20] MEDS ORDERED: OXYC-57 PO (07:59)
[2017-02-20 08:14] VITALS: BP 168/118; PULSE 94; O2SAT 98
== END 2017-02-20 08:15 | disposition home or self-care (01) ==
LOC: EDBD 04:56 → C.EDA 04:57
DX: K80.20 Calculus of gallbladder without cholecystitis without obstruction (principal); K80.50 Calculus of bile duct without cholangitis or cholecystitis without obstruction; Z83.79 Family history of other diseases of the digestive system

== ENCOUNTER 2017-02-21 15:30 | Observation (INO) | payer OTHER ==
[~2017-02-21] VITALS: Ht 160 cm; Wt 157.7 kg
[~2017-02-21 15:30] MED LIST changes: -ACET325T96 PO; -MTR600X PO; +ONDA4TAB10 SL; -PRENTAB26 PO
[2017-02-21] MEDS ORDERED: CEFEPIME IV 1,000 MG in DEXTROSE 5% 100ML 100 ML IV STA (15:56)
[2017-02-21] MEDS ORDERED: MoRPHine SULFATE 10 MG/ML CARP/VIAL IV STA (15:56)
[2017-02-21] MEDS ORDERED: ONDANSETRON INJ 2 MG/ML 2 ML VIAL IV PRN ×3 (16:00→21:00)
[2017-02-21 16:42] LABS: BASO % 0.2 %; BASO ABS # 0.02 K/uL (0-0.2); EOS % 1.7 %; EOS ABS # 0.19 K/uL (0-0.5); HEMATOCRIT 42.3 % (37-47); HEMOGLOBIN 14.3 g/dL (12.0-16.0); IG# 0.02 K/uL (0.00-0.02); LYMPH ABS # 2.28 K/uL (1.2-3.4); MEAN CELL VOLUME 86.3 fL (80-100); MEAN CORPUSCULAR HEMOGLOBIN 29.2 pg (25-34); MEAN CORPUSCULAR HGB CONC 33.8 g/dl (32-36); MEAN PLATELET VOLUME 9.6 fL (7.4-10.4); MONO % 9.7 %; MONO ABS # 1.11 K/uL (0.11-0.59); NEUT % 68.2 %; NEUT ABS # 7.78 K/uL (1.4-6.5); PLATELET COUNT 313 K/uL (130-400); RED CELL DISTRIBUTION WIDTH CV 13.7 % (11.5-14.5); RED CELL DISTRIBUTION WIDTH SD 43.4 fL (36.4-46.3)
[2017-02-21 17:06] LABS: ALBUMIN 3.4 gm/dl (3.4-5.0); CREATININE 0.69 mg/dl (0.60-1.20); POTASSIUM 3.6 mmol/L (3.5-5.1)
[2017-02-21 17:08] LABS: TOTAL PROTEIN 7.7 gm/dl (6.4-8.2)
[2017-02-21] MEDS ORDERED: ONDANSETRON INJ 2 MG/ML 2 ML VIAL ONE (18:16)
[2017-02-21] MEDS ORDERED: DEXAMETHASONE SOD INJ 4 MG/ML VIAL ONE (18:16)
[2017-02-21] MEDS ORDERED: GLYCOPYRROLATE INJ 0.2 MG/ML VIAL ONE (18:16)
[2017-02-21] MEDS ORDERED: PROPOFOL IV EMULSION 10 MG/ML 20 ML VIAL IV ONE (18:16)
[2017-02-21] MEDS ORDERED: LIDOCAINE HCL 2% 2 ML VIAL (20MG/ML) ONE (18:16)
[2017-02-21] MEDS ORDERED: NEOSTIGMINE METHYLSULFATE 5 MG/5 ML SYR ONE (18:16)
[2017-02-21] MEDS ORDERED: FENTANYL CITRATE INJ 50 MCG/1 ML 2 ML VIAL ONE ×2 (18:17→20:56)
[2017-02-21] MEDS ORDERED: MIDAZOLAM HCL 1 MG/ML 2ML VIAL ONE (18:17)
[2017-02-21] MEDS ORDERED: BUPIVACAINE 0.5 % 5 MG/1 ML MPF 30ML VIAL ONE (18:22)
--- NOTE | 2017-02-21 18:32 | EMERGENCY ROOM VISIT NOTE ---
History First contact with patient: 15:45 Chief Complaint: ABDOMINAL PAIN Stated Complaint: GALL STONES, ABD PAIN ON RIGHT SIDE History of Present Illness The patient is a 31 year old female who presents to the Emergency Room with complaints of persistent right upper quadrant pain. The patient states that she was diagnosed with gallstones yesterday and was sent home on pain medication and something for nausea. The patient does not have a PCP. She called the surgeon was given to her this morning but they never called her back. The patient states that she continues to have a lot of pain in the right upper quadrant. She states if she takes the pain medication and goes down to a 2 or 3 but only stays there for at most an hour and then goes right back up to an 8 or 9. The patient also admits to persistent nausea even when taking the Zofran. She denies any vomiting or change in bowel habits. The patient denies any fever. Patient denies any chest pain or shortness of breath. Review of Systems 10 system review was performed and was negative unless stated otherwise history of present illness. Past Medical/Surgical History Medical Problems: (1) 40 weeks gestation of (2) Elevated blood pressure affecting in third trimester, antepartum (3) Miscarriage (4) Rupture of membranes with clear amniotic fluid Family History Cholecystitis FHx: cholecystectomy Social History Smoking Status: Never Smoker Alcohol Use: none Drug Use: none Current/Historical Medications Scheduled Ondasetron Odt (Zofran Odt), 4 MG SL Q8 Scheduled PRN Oxycodone/Acetaminophen 5MG/325MG (Percocet 5MG/325MG), 1-2 TABS PO Q4H PRN for Pain Physical Exam Vital Signs Date Time Temp Pulse Resp B/P (MAP) Pulse Ox O2 Delivery O2 Flow Rate FiO2 02/21/17 17:07 100 20 158/101 96 Room Air 02/21/17 15:42 37.0 113 20 111/73 95 Room Air Physical Exam GENERAL: 31-year-old white female appears in no acute distress. MENTAL Status: Alert and oriented 3. MOUTH: Mucosa is moist NECK: Supple, no lymphadenopathy noted. No carotid bruits noted. LUNGS: Clear auscultation without wheezes rales or rhonchi. CARDIAC: Regular rate and rhythm without murmur. Pulses is full and equal throughout. BACK: No CVA tenderness noted. ABDOMEN: Positive bowel sounds all 4 quadrants. Soft, tenderness palpation in the right upper quadrant otherwise nontender to palpation without organomegaly or masses. Positive Saha sign EXTREMITIES: No cyanosis or edema noted. Medical Decision & Procedures Laboratory Results 02/21/17 16:23 Red Blood Count 4.90, Mean Corpuscular Volume 86.3, Mean Corpuscular Hemoglobin 29.2, Mean Corpuscular Hemoglobin Concent 33.8, Mean Platelet Volume 9.6, Neutrophils (%) (Auto) 68.2, Lymphocytes (%) (Auto) 20.0, Monocytes (%) (Auto) 9.7, Eosinophils (%) (Auto) 1.7, Basophils (%) (Auto) 0.2, Neutrophils # (Auto) 7.78, Lymphocytes # (Auto) 2.28, Monocytes # (Auto) 1.11, Eosinophils # (Auto) 0.19, Basophils # (Auto) 0.02 02/21/17 16:23 Test 02/21/17 16:23 02/21/17 16:35 02/21/17 18:30 White Blood Count 11.40 K/uL (4.8-10.8) Red Blood Count 4.90 M/uL (4.2-5.4) Hemoglobin 14.3 g/dL (12.0-16.0) Hematocrit 42.3 % (37-47) Mean Corpuscular Volume 86.3 fL (80-100) Mean Corpuscular Hemoglobin 29.2 pg (25-34) Mean Corpuscular Hemoglobin Concent 33.8 g/dl (32-36) Platelet Count 313 K/uL (130-400) Mean Platelet Volume 9.6 fL (7.4-10.4) Neutrophils (%) (Auto) 68.2 % Lymphocytes (%) (Auto) 20.0 % Monocytes (%) (Auto) 9.7 % Eosinophils (%) (Auto) 1.7 % Basophils (%) (Auto) 0.2 % Neutrophils # (Auto) 7.78 K/uL (1.4-6.5) Lymphocytes # (Auto) 2.28 K/uL (1.2-3.4) Monocytes # (Auto) 1.11 K/uL (0.11-0.59) Eosinophils # (Auto) 0.19 K/uL (0-0.5) Basophils # (Auto) 0.02 K/uL (0-0.2) RDW Standard Deviation 43.4 fL (36.4-46.3) RDW Coefficient of Variation 13.7 % (11.5-14.5) Immature Granulocyte % (Auto) 0.2 % Immature Granulocyte # (Auto) 0.02 K/uL (0.00-0.02) Anion Gap 9.0 mmol/L (3-11) Est Creatinine Clear Calc Drug Dose 177.9 ml/min Estimated GFR () 135.4 Estimated GFR (Non- 116.8 BUN/Creatinine Ratio 8.7 (10-20) Calcium Level 9.0 mg/dl (8.5-10.1) Total Bilirubin 0.9 mg/dl (0.2-1) Direct Bilirubin 0.2 mg/dl (0-0.2) Aspartate Amino Transf (AST/SGOT) 71 U/L (15-37) Alanine Aminotransferase (ALT/SGPT) 70 U/L (12-78) Alkaline Phosphatase 53 U/L (45-117) Total Protein 7.7 gm/dl (6.4-8.2) Albumin 3.4 gm/dl (3.4-5.0) Lipase 105 U/L (73-393) Bedside Lactic Acid Venous 0.72 mmol/L (0.90-1.70) Medications Administered Medications (Trade) Dose Ordered Sig/Anjum Route Start Time Stop Time Status Last Admin Dose Admin Cefepime HCl 1000 mg/Dextrose 111 ml @ 200 mls/hr NOW STAT IV 02/21/17 15:56 02/21/17 16:29 DC 02/21/17 16:22 200 MLS/HR Morphine Sulfate (MoRPHine SULFATE INJ) 6 mg NOW STAT IV 02/21/17 15:56 02/21/17 15:59 DC 02/21/17 16:22 6 MG Ondansetron HCl (Zofran Inj) 4 mg Q4H PRN IV 02/21/17 16:00 03/23/17 15:59 02/21/17 16:22 4 MG ED Course The patient was evaluated. The patient's EMR medication list were reviewed. The patient had a gallbladder ultrasound performed yesterday which revealed cholelithiasis and mild gallbladder wall thickening. Labs were unremarkable. IV access was obtained. CBC and differential renal profile and LFTs and lipase levels were ordered. The patient was given morphine 6 mg IV for pain. She is also given Zofran 4 mg IV push for nausea. Treatment plan was discussed with Dr. Sanders who was in agreement. She was also given Cefepime 1 g IV. Labs are reviewed. The patient's white count was slightly elevated at 11,000. The patient's LFTs were normal. The patient's BUN was low at 6. The patient was informed of the findings. The patient was informed with treatment plan. I consulted surgery who is going to come evaluate the patient. Dr. Bennett is going to take the patient to the OR this evening. Medical Decision Differential diagnosis include acute cholecystitis, cholelithiasis, biliary colic [place] Drug Monitoring Program Search Results: patient reviewed within database Medication Reconcilliation Current Medication List: was personally reviewed by me Blood Pressure Screening Patient's blood pressure: Normal blood pressure Impression Primary Impression: Acute cholecystitis Departure Information Dispostion Being Evaluated By Surgeon Condition GOOD Referrals No Doctor, Assigned (PCP) Patient Instructions My [facility]
--- NOTE | 2017-02-21 18:45 | Medical Consult ---
Consultation Date of Consultation: Feb 21, 2017. Attending Physician: Reason for Consultation: Gallstones, Possible Acute Cholecystitis. History of Present Illness 31-year-old female, 8 months post-, presents to [facility] ED with 3 day history of abdominal pain. Prior to abdominal pain beginning she reports that she had Turkmen for dinner (02/18/17)- pain began shortly after finishing meal. Patient presented to ED yesterday (02/20/17) for evaluation of right upper quadrant pain. WBC within normal limits. LFTs normal Ultrasound revealed 1. Cholelithiasis and mild gallbladder wall thickening. No sonographic Saha sign. A nuclear medicine hepatobiliary scan could be obtained as clinically indicated to evaluate for acute cholecystitis. 2. No biliary ductal dilatation. Patient was discharged with pain medication and instructions to follow-up with PCP and [place] [facility]. Patient does not have PCP and was unable to contact Gen Surg clinic. She states that right upper quadrant pain persisted even with use of Percocet. She states that she would only get pain relief for no more than 45min- 1 hour before pain once again became 10/10. She returned to ED today for further evaluation. WBC elevated today at 11.40. She denies current nausea. Denies constipation or diarrhea. Family history of gallbladder issues- father Laparoscopic Cholecystectomy. Last meal was 1AM on 02/20/17- 1 saltine cracker with water. Sister, Arianne, is with her. Past Medical/Surgical History Medical Problems: (1) Biliary colic Status: Acute (2) Cholelithiasis Status: Acute (3) Right upper quadrant abdominal pain Status: Acute Family History Cholecystitis FHx: cholecystectomy Social History Smoking Status: Never Smoker Drug Use: none Allergies Coded Allergies: Amoxicillin (Verified Allergy, Unknown, ., 06/29/16) Banana (Verified Allergy, Unknown, ., 06/29/16) Clarithromycin (Verified Allergy, Unknown, ., 06/29/16) Penicillins (Verified Allergy, Unknown, ., 06/29/16) Current Inpatient Medications Current Inpatient Medications Medications (Trade) Dose Ordered Sig/Anjum Route Start Time Stop Time Status Last Admin Dose Admin Ondansetron HCl (Zofran Inj) 4 mg Q4H PRN IV 02/21/17 16:00 03/23/17 15:59 02/21/17 16:22 4 MG Review of Systems Constitutional: No fever, No chills Abdomen: + pain, No nausea, No vomiting, No diarrhea, No constipation Physical Exam Date Time Temp Pulse Resp B/P (MAP) Pulse Ox O2 Delivery O2 Flow Rate FiO2 02/21/17 17:07 100 20 158/101 96 Room Air 02/21/17 15:42 37.0 113 20 111/73 95 Room Air General Appearance: WD/WN, no apparent distress Head: normocephalic, atraumatic Abdomen/GI: soft, + pertinent finding (tender to palpation in RUQ. ) Skin: normal color, warm/dry, no rash Laboratory Results Last 24 Hours Test 02/21/17 16:23 02/21/17 16:35 White Blood Count 11.40 K/uL Red Blood Count 4.90 M/uL Hemoglobin 14.3 g/dL Hematocrit 42.3 % Mean Corpuscular Volume 86.3 fL Mean Corpuscular Hemoglobin 29.2 pg Mean Corpuscular Hemoglobin Concent 33.8 g/dl Platelet Count 313 K/uL Mean Platelet Volume 9.6 fL Neutrophils (%) (Auto) 68.2 % Lymphocytes (%) (Auto) 20.0 % Monocytes (%) (Auto) 9.7 % Eosinophils (%) (Auto) 1.7 % Basophils (%) (Auto) 0.2 % Neutrophils # (Auto) 7.78 K/uL Lymphocytes # (Auto) 2.28 K/uL Monocytes # (Auto) 1.11 K/uL Eosinophils # (Auto) 0.19 K/uL Basophils # (Auto) 0.02 K/uL RDW Standard Deviation 43.4 fL RDW Coefficient of Variation 13.7 % Immature Granulocyte % (Auto) 0.2 % Immature Granulocyte # (Auto) 0.02 K/uL Sodium Level 139 mmol/L Potassium Level 3.6 mmol/L Chloride Level 104 mmol/L Carbon Dioxide Level 27 mmol/L Anion Gap 9.0 mmol/L Blood Urea Nitrogen 6 mg/dl Creatinine 0.69 mg/dl Est Creatinine Clear Calc Drug Dose 177.9 ml/min Estimated GFR () 135.4 Estimated GFR (Non- 116.8 BUN/Creatinine Ratio 8.7 Random Glucose 97 mg/dl Calcium Level 9.0 mg/dl Total Bilirubin 0.9 mg/dl Direct Bilirubin 0.2 mg/dl Aspartate Amino Transf (AST/SGOT) 71 U/L Alanine Aminotransferase (ALT/SGPT) 70 U/L Alkaline Phosphatase 53 U/L Total Protein 7.7 gm/dl Albumin 3.4 gm/dl Lipase 105 U/L Bedside Lactic Acid Venous 0.72 mmol/L Assessment & Plan 31-year-old female right upper quadrant pain- elevated WBC. Reviewed recent imaging and labwork. Pain most likely coming from gallbladder. Recommend Lap Tamy. Discussed risks of surgery with patient and patient's sister, Arianne. Will proceed with Laparoscopic Cholecystectomy, Possible Open tonight with Dr. Bennett. Consent obtained by Dr. Bennett. Patient received IV abx in ER. Last meal was 1AM on 02/20/17. All questions were answered and patient verbalized understanding and agreement.
[2017-02-21] MEDS ORDERED: SUCCINYLCHOLINE CHLORIDE 20 MG/ML 10 ML VIAL IV ONE (19:00)
[2017-02-21] MEDS: EpINEphrine INJ 1MG/ML AMP 1 MG/ML AMP ONE (20:30)
[2017-02-21] MEDS ORDERED: ACETAMINOPHEN IV 650 MG in EMPTY BAG 0 ML IV PRN (20:45)
[2017-02-21] MEDS ORDERED: HYDROCODONE/ACETAMOPHEN 5/325MG TAB PO PRN (20:45)
[2017-02-21] MEDS ORDERED: HYDROmorphone INJ 1 MG/ML SYR IV PRN (20:45)
[2017-02-21] MEDS: FENTANYL CITRATE INJ 50 MCG/1 ML 2 ML VIAL IV PRN ×2 (20:51→20:56)
--- NOTE | 2017-02-21 20:54 | [facility] Operative Report ---
Operative Report Operative Date Feb 21, 2017. Pre-Operative Diagnosis Acute Calculus Cholecystitis Post-Operative Diagnosis Acute Calculus Cholecystitis Procedure(s) Performed Laparoscopic Cholecystectomy Surgeon Dr. Bennett Respiratory Care Practitioner Surgeon(s) Raad Oconnor PA-C Estimated Blood Loss 20cc Findings acutely inflammed gallbladder Specimens A. Gallbladder and Contents Anesthesia get Complication(s) None Disposition Recovery Room / PACU Description of Procedure After informed consent was obtained the patient was brought to the operating room and placed in supine position. After successful intubation the abdomen was sterilely prepped and draped in usual fashion. A supraumbilical incision was made with an 11 blade scalpel and carried down through the soft tissue using electrocautery. Anterior rectus fascia was opened using electrocautery and 2 #0 Vicryl stay sutures were placed. Peritoneum was entered using blunt finger penetration and a 12 mm Gao trocar was placed. The abdomen was insufflated to 20 mmHg. The laparoscope was inserted and the abdomen was examined 360. A subxiphoid 5 mm port and 2 right upper quadrant 5 darin ports were placed under direct vision. We had used a long trochars because of the patient's body habitus. Her body habitus made for difficult case throughout. The patient was then placed in a steep reverse Trendelenburg position and slightly airplaned to the left. The gallbladder was acutely inflamed. We were unable to grasp it because of the thick walled nature. We used a gallbladder needle to drain dark bilious fluid. We were then able to get the gallbladder mobile enough to grab it and elevated superiorly and laterally. I used a [place] dissector to take down adhesions around the neck of the gallbladder. The [place] was also used to skeletonize the cystic duct. This was clipped twice proximally and once distally and transected using laparoscopic scissor. In similar fashion the cystic artery was identified skeletonized clipped and divided. There was also an anterior branch that was clipped and cut as well. The gallbladder was removed from the gallbladder fossa with electrocautery. It was acutely inflamed but we were able to take it off without rupturing it. It was placed into an Endo Catch bag. Any small bleeding points on the gallbladder fossa were controlled using electrocautery. We then thoroughly irrigated the right upper quadrant until all the irrigant was clear. We looked around the abdomen and saw no other gross abnormality. Because of the patient's body habitus as well as size of the gallbladder and gallstones we did have some difficulty getting this out of the trocar sites. We had to extend the supraumbilical incision significantly as well as open the fascia significantly in order to get the gallbladder and contents out. Once it was out we then closed the fascia using #1 Ethibond in interrupted figure-of- eight fashion. This wound was thoroughly irrigated and closed using 2-0 Vicryl for deep layers and 4-0 Monocryl for the skin. Remainder the incisions were irrigated and closed using 4-0 Monocryl. Marcaine was injected around the incisions for postoperative analgesia. Dermabond glue as well as OpSite dressings were used. The patient was awaken extubated and transferred recovery in stable condition My physician's assistant media buyer was present throughout the entire case. He helped prepped the patient. He helped with exposure for trocar placement as well as helped with gallbladder retraction helped run the camera helped with wound closure at the end of the case I attest to the content of the Intraoperative Record and any orders documented therein. Any exceptions are noted below.
[2017-02-21] MEDS ORDERED: EpHEDrine SULFATE INJ 50 MG/ML AMP IV PRN (21:00)
[2017-02-21] MEDS ORDERED: ACETAMINOPHEN 1000 MG/100 ML IV IV ONE (21:00)
[2017-02-21] MEDS ORDERED: ATROPINE SULFATE 0.1 MG/ML 5ML SYR IV PRN (21:00)
--- NOTE | 2017-02-21 21:01 | Discharge Instructions ---
Discharge Instructions Date of Service Feb 21, 2017. Admission Reason for Admission: Gall Stones, Abd Pain On Right Side Discharge Discharge Diagnosis / Problem: Gall Stones, Abd Pain On Right Side Discharge Goals Goal(s): Decrease discomfort, Improve function Activity Recommendations Activity Limitations: as noted below Lifting Limitations: no more than 10 pounds, until after follow-up appointment Exercise/Sports Limitations: until after follow-up appointment May Resume Sexual Activity: after follow-up appointment Shower/Bathe: tomorrow Driving or Machine Use: resume 3 days after discharge (Please do not drive while using narcotic pain medication) . Instructions / Follow-Up Instructions / Follow-Up You have surgical glue covering your incision sites. Please allow this to fall off on its own. You have been prescribed pain medication to take as needed for pain relief. You may alternate this with Ibuprofen for better relief as well. Please follow-up with Dr. Bennett in 1-2 Weeks. Please contact our office at [phone] to schedule an appointment if you have not done so already. Please contact our office with any questions or concerns. [facility]. [address] [place] [address]. Current Hospital Diet Patient's current hospital diet: Clear Liquid Diet Discharge Diet Recommended Diet: Regular Diet Procedures Procedures Performed: Laparoscopic Cholecystectomy Pending Studies Studies pending at discharge: yes List of pending studies: Pathology Medical Emergencies . Who to Call and When: Medical Emergencies: If at any time you feel your situation is an emergency, please call 911 immediately. . Non-Emergent Contact Non-Emergency issues call your: Primary Care Provider, Surgeon Call Non-Emergent contact if: you have a fever, temperature is above 101.5, your pain is not controlled, your pain is worsening, wound has increased drainage, wound has increased redness, you have any medication questions . "Provider Documentation" section prepared by Raad Oconnor. . VTE Core Measure Inpt VTE Proph given/why not?: [facility] [place] Drug Monitoring Program Search Results: patient reviewed within database, no issues identified
[2017-02-21] MEDS: HYDROmorphone INJ 1 MG/ML SYR IV PRN ×2 (21:11→21:16)
[2017-02-21] MEDS ORDERED: HYDROmorphone INJ 1 MG/ML SYR ONE (21:12)
--- NOTE | 2017-02-21 21:22 | Anesthesiology Progress Note ---
Anesthesia Post Op Note Date & Time Feb 21, 2017 at 21:22 Vital Signs Pain Intensity: 8 Vital Signs Past 12 Hours Date Time Temp Pulse Resp B/P (MAP) Pulse Ox O2 Delivery O2 Flow Rate FiO2 02/21/17 21:05 92 16 149/99 96 Oxymask 10 02/21/17 20:55 82 16 161/98 96 Oxymask 10 02/21/17 20:47 36.6 91 16 141/98 97 Oxymask 10 02/21/17 18:33 116 20 149/101 96 Room Air 02/21/17 17:07 100 20 158/101 96 Room Air 02/21/17 15:42 37.0 113 20 111/73 95 Room Air Notes Mental Status: alert / awake / arousable, participated in evaluation Pt Amnestic to Procedure: Yes Nausea / Vomiting: adequately controlled Pain: adequately controlled Airway Patency, RR, SpO2: stable & adequate BP & HR: stable & adequate Hydration State: stable & adequate Anesthetic Complications: no major complications apparent
[2017-02-21] MEDS ORDERED: IV FLUIDS COMPLETED PRN (21:45)
[2017-02-21 21:50] VITALS: BP 135/83; PULSE 76; TEMP 36.7; O2SAT 97; Ht 160 cm; Wt 157.7 kg
[2017-02-21 22:20] VITALS: BP 120/78; PULSE 87; TEMP 36.7; O2SAT 97
[2017-02-21] MEDS: LACTATED RINGER'S 1000ML 1,000 ML IV SCH (22:39)
[2017-02-21] MEDS: HYDROCODONE/ACETAMOPHEN 5/325MG TAB PO PRN (22:40)
[2017-02-21 22:50] VITALS: BP 184/104; PULSE 85; TEMP 36.7; O2SAT 95
[2017-02-21 23:14] VITALS: BP 143/82
[2017-02-21] MEDS: CIPROFLOXACIN / D5W 200 MG in PREMIXED IN D5W 100 ML IV SCH (23:23)
[2017-02-21 23:50] VITALS: BP 159/95; PULSE 82; TEMP 36.7; O2SAT 97
[2017-02-22 00:05] LABS: CALCIUM 9.1 mg/dl (8.5-10.1); CREATININE 0.78 mg/dl (0.60-1.20); POTASSIUM 3.9 mmol/L (3.5-5.1)
[2017-02-22] MEDS: HYDROmorphone INJ 1 MG/ML SYR IV PRN ×2 (00:06→04:44)
[2017-02-22 00:50] VITALS: BP 159/80; PULSE 105; TEMP 36.7; O2SAT 96
[2017-02-22 03:31] VITALS: BP 144/84; PULSE 104; TEMP 36.7; O2SAT 96
[2017-02-22 05:39] VITALS: PULSE 98; O2SAT 93
[2017-02-22 06:55] VITALS: BP 177/70; PULSE 95; TEMP 36.7; O2SAT 94
--- NOTE | 2017-02-22 07:17 | Surgery Progress Note ---
Surgery Progress Note Date of Service Feb 22, 2017. Subjective Post OP Day: POD #0 + feeling well, + pain controlled, + diet (Tolerating clears), No complaints, No bowel movement, No flatus, No nausea, No vomiting Feeling well, reports minimal pain at incision sites. States she was last given a dilaudid inj at 4am for pain. Objective Vital Signs: Date Time Temp Pulse Resp B/P (MAP) Pulse Ox O2 Delivery O2 Flow Rate FiO2 02/22/17 05:39 98 93 Room Air 02/22/17 03:31 36.7 104 18 144/84 (104) 96 Nasal Cannula 2.0 02/22/17 00:50 36.7 105 20 159/80 (106) 96 Nasal Cannula 2.0 02/21/17 23:50 36.7 82 18 159/95 (116) 97 Nasal Cannula 2.0 02/21/17 23:14 143/82 (102) 02/21/17 23:10 Nasal Cannula 2.0 02/21/17 22:50 36.7 85 18 184/104 (130) 95 Nasal Cannula 2.0 02/21/17 22:20 36.7 87 18 120/78 (92) 97 Nasal Cannula 2.0 02/21/17 21:50 97 Nasal Cannula 2.0 02/21/17 21:50 36.7 76 18 135/83 97 Nasal Cannula 2.0 02/21/17 21:50 36.7 76 18 135/83 (100) 97 Nasal Cannula 2.0 02/21/17 21:35 36.4 91 16 145/89 96 Nasal Cannula 2 02/21/17 21:25 90 16 149/88 96 Nasal Cannula 2 02/21/17 21:15 75 16 150/99 98 Oxymask 2 02/21/17 21:05 92 16 149/99 96 Oxymask 10 02/21/17 20:55 82 16 161/98 96 Oxymask 10 02/21/17 20:47 36.6 91 16 141/98 97 Oxymask 10 02/21/17 18:33 116 20 149/101 96 Room Air 02/21/17 17:07 100 20 158/101 96 Room Air 02/21/17 15:42 37.0 113 20 111/73 95 Room Air General Appearance: WD/WN, no apparent distress Head: normocephalic, atraumatic Neck: trachea midline Respiratory/Chest: no respiratory distress, no accessory muscle use Abdomen: normal bowel sounds, non distended, soft, no organomegaly, + tenderness (Mild, incisional) Incision(s): clean, dry, intact, no erythema, no drainage Laboratory Results: Results Past 24 Hours Test 02/21/17 16:23 02/21/17 16:35 02/21/17 18:00 02/21/17 23:02 Range/Units White Blood Count 11.40 4.8-10.8 K/uL Red Blood Count 4.90 4.2-5.4 M/uL Hemoglobin 14.3 12.0-16.0 g/dL Hematocrit 42.3 37-47 % Mean Corpuscular Volume 86.3 80-100 fL Mean Corpuscular Hemoglobin 29.2 25-34 pg Mean Corpuscular Hemoglobin Concent 33.8 32-36 g/dl Platelet Count 313 130-400 K/uL Mean Platelet Volume 9.6 7.4-10.4 fL Neutrophils (%) (Auto) 68.2 % Lymphocytes (%) (Auto) 20.0 % Monocytes (%) (Auto) 9.7 % Eosinophils (%) (Auto) 1.7 % Basophils (%) (Auto) 0.2 % Neutrophils # (Auto) 7.78 1.4-6.5 K/uL Lymphocytes # (Auto) 2.28 1.2-3.4 K/uL Monocytes # (Auto) 1.11 0.11-0.59 K/uL Eosinophils # (Auto) 0.19 0-0.5 K/uL Basophils # (Auto) 0.02 0-0.2 K/uL RDW Standard Deviation 43.4 36.4-46.3 fL RDW Coefficient of Variation 13.7 11.5-14.5 % Immature Granulocyte % (Auto) 0.2 % Immature Granulocyte # (Auto) 0.02 0.00-0.02 K/uL Sodium Level 139 137 136-145 mmol/L Potassium Level 3.6 3.9 3.5-5.1 mmol/L Chloride Level 104 103 98-107 mmol/L Carbon Dioxide Level 27 27 21-32 mmol/L Anion Gap 9.0 7.0 3-11 mmol/L Blood Urea Nitrogen 6 8 7-18 mg/dl Creatinine 0.69 0.78 0.60-1.20 mg/dl Est Creatinine Clear Calc Drug Dose 177.9 157.3 ml/min Estimated GFR () 135.4 118.2 Estimated GFR (Non- 116.8 102.0 BUN/Creatinine Ratio 8.7 10.0 10-20 Random Glucose 97 143 70-99 mg/dl Calcium Level 9.0 9.1 8.5-10.1 mg/dl Total Bilirubin 0.9 0.2-1 mg/dl Direct Bilirubin 0.2 0-0.2 mg/dl Aspartate Amino Transf (AST/SGOT) 71 15-37 U/L Alanine Aminotransferase (ALT/SGPT) 70 12-78 U/L Alkaline Phosphatase 53 45-117 U/L Total Protein 7.7 6.4-8.2 gm/dl Albumin 3.4 3.4-5.0 gm/dl Lipase 105 73-393 U/L Bedside Lactic Acid Venous 0.72 0.90-1.70 mmol/L Urine Test NEG NEG Assessment & Plan POD #0 s/p laparoscopic cholecystectomy Doing well, pain controlled, urinating okay, No N/V. Tolerating clears, will advance to full liquids and ADAT from there. Advised patient to try to request PO pain medications if possible as she transitions to D/C. Likely D/C today if pain controlled on PO meds and advancing diet okay. Please contact with questions or concerns.
[2017-02-22] MEDS ORDERED: HYDR-5688 PO (07:22)
[2017-02-22] MEDS: HYDROCODONE/ACETAMOPHEN 5/325MG TAB PO PRN ×2 (07:46→12:03)
[2017-02-22] MEDS: CIPROFLOXACIN / D5W 200 MG in PREMIXED IN D5W 100 ML IV SCH (10:20)
[2017-02-22] MEDS: LACTATED RINGER'S 1000ML 1,000 ML IV SCH (10:20)
[2017-02-22 11:27] VITALS: BP 177/70; PULSE 95; TEMP 36.7; O2SAT 94
== END 2017-02-22 16:10 | disposition home or self-care (01) ==
LOC: C.EDB 15:33 → C.MSN 20:55 → ENRESERV 21:13
PROVIDERS: ADMIT Surgery; ATTEND Surgery
DX: K80.12 Calculus of gallbladder with acute and chronic cholecystitis without obstruction (principal)

== ENCOUNTER 2017-10-03 08:09 | Emergency (ER) | payer OTHER ==
[~2017-10-03] VITALS: Ht 160 cm; Wt 152.6 kg
[2017-10-03 08:11] VITALS: TEMP 36.9; Ht 160 cm; Wt 152.6 kg
[2017-10-03] MEDS ORDERED: CLINDAMYCIN IV 600 MG in DEXTROSE 5% 50ML 50 ML IV STA (09:25)
[2017-10-03 09:58] LABS: BASO % 0.1 %; BASO ABS # 0.01 K/uL (0-0.2); EOS % 2.5 %; EOS ABS # 0.26 K/uL (0-0.5); HEMATOCRIT 42.9 % (37-47); HEMOGLOBIN 14.3 g/dL (12.0-16.0); IG# 0.02 K/uL (0.00-0.02); LYMPH % 23.2 %; MEAN CELL VOLUME 86.8 fL (80-100); MEAN CORPUSCULAR HEMOGLOBIN 28.9 pg (25-34); MEAN CORPUSCULAR HGB CONC 33.3 g/dl (32-36); MEAN PLATELET VOLUME 9.5 fL (7.4-10.4); MONO ABS # 0.62 K/uL (0.11-0.59); NEUT ABS # 7.02 K/uL (1.4-6.5); PLATELET COUNT 310 K/uL (130-400); RED CELL DISTRIBUTION WIDTH CV 13.9 % (11.5-14.5); RED CELL DISTRIBUTION WIDTH SD 43.8 fL (36.4-46.3); WHITE BLOOD COUNT 10.33 K/uL (4.8-10.8)
[2017-10-03 10:18] LABS: ALBUMIN 3.7 gm/dl (3.4-5.0); ALKALINE PHOSPHATASE 39 U/L (45-117); ALT/SGPT 19 U/L (12-78); AST/SGOT 15 U/L (15-37); BLOOD UREA NITROGEN 8 mg/dl (7-18); CALCIUM 9.7 mg/dl (8.5-10.1); CARBON DIOXIDE 26 mmol/L (21-32); CREATININE 0.72 mg/dl (0.60-1.20); GLUCOSE 106 mg/dl (70-99); LIPASE 124 U/L (73-393); POTASSIUM 4.1 mmol/L (3.5-5.1); SODIUM 139 mmol/L (136-145); TOTAL PROTEIN 7.9 gm/dl (6.4-8.2)
--- NOTE | 2017-10-03 10:23 | DIAGNOSTIC IMAGING REPORT ---
KUB CLINICAL HISTORY: Right flank pain. FINDINGS: 3 AP supine abdominal radiographs are obtained. No prior studies are available for comparison at the time of dictation. Cholecystectomy clips are noted. There is no bowel obstruction. There is a rectosigmoid fecal impaction and moderate constipation. No evidence of intraperitoneal free air is seen on these supine images. There are no abnormal abdominal calcifications. The bony structures appear intact. IMPRESSION: 1. Rectosigmoid fecal impaction and moderate constipation. 2. No bowel obstruction is seen. 3. There are no abnormal abdominal calcifications. Electronically signed by: Murtaza Moy M.D. 10/03/2017 10:22 AM Dictated Date/Time: 10/03/2017 10:21 AM
--- NOTE | 2017-10-03 10:43 | DIAGNOSTIC IMAGING REPORT ---
ULTRASOUND KIDNEYS AND BLADDER CLINICAL HISTORY: Right flank pain. COMPARISON STUDY: KUB dated 10/03/2017. TECHNIQUE: Real-time, grayscale, and color flow sonography of the kidneys and bladder is performed. Images are reviewed in the transverse and longitudinal planes. FINDINGS: Kidneys: The kidneys are normal in size and echotexture. The right kidney measures 12.3 cm and the left kidney measures 11.6 cm. There is no hydronephrosis. No shadowing renal calculi are identified. There is no sonographic evidence of contour deforming renal mass lesion. No perinephric fluid is identified. Bladder: The bladder is normal in appearance. Bilateral ureteral jets were seen. IMPRESSION: Unremarkable sonographic assessment of the kidneys and bladder. Electronically signed by: Murtaza Moy M.D. 10/03/2017 10:42 AM Dictated Date/Time: 10/03/2017 10:38 AM
[2017-10-03] MEDS ORDERED: CLIN300C10 PO (11:20)
--- NOTE | 2017-10-03 11:20 | EMERGENCY ROOM VISIT NOTE ---
History First contact with patient: 08:45 Chief Complaint: FLANK PAIN Stated Complaint: SWOLLEN FACE, PAIN IN LWR RIGHT SIDE History of Present Illness The patient is a 31 year old female who presents to the Emergency Room with complaints of right facial swelling and right flank pain. The patient states she is mainly here for the right facial swelling. She woke up this morning with swelling to the right side of her face. The patient thinks it might be a tooth abscess. She called her dentist and she was instructed to come to the emergency room since they did not have any openings. The patient denies any pain. She denies any fever or chills any chest pain or shortness of breath. The patient also is complaining of right flank pain. She states it feels similar to when she had a UTI in the past. The patient denies a history of kidney stones. The patient denies any urinary frequency, urgency, dysuria or hematuria. The patient states that she denies any injury to the area. The pain started yesterday. She woke up with the pain. She describes it as constant at a 5 out of 10 and intermittently stabbing at a 7 out of 10. The patient took Tylenol yesterday without any relief. Review of Systems 10 system review was performed and was negative unless stated otherwise history of present illness. Past Medical/Surgical History Medical Problems: (1) 40 weeks gestation of (2) Elevated blood pressure affecting in third trimester, antepartum (3) Miscarriage (4) Rupture of membranes with clear amniotic fluid Hypertension Family History Cholecystitis FHx: cholecystectomy Social History Smoking Status: Never Smoker Alcohol Use: none Drug Use: none Marital Status: single Housing Status: lives with significant other Occupation Status: employed Current/Historical Medications No Active Prescriptions or Reported Meds Physical Exam Vital Signs Date Time Temp Pulse Resp B/P (MAP) Pulse Ox O2 Delivery O2 Flow Rate FiO2 10/03/17 10:53 87 14 148/88 98 Room Air 10/03/17 09:54 98 16 95 Room Air 10/03/17 08:11 36.9 99 16 154/84 95 Room Air Physical Exam GENERAL: 31-year-old white female appears in no acute distress. MENTAL Status: Alert and oriented 3. MOUTH: Dental decay is noted in multiple teeth. Right upper molar without any tenderness to percussion. Although the patient is tender to palpation over the gingiva on the lateral aspect. No palpable abscess noted. FACE: Edema noted to the right facial cheek especially over the right maxilla. Remainder face is unremarkable. No erythema noted. NECK: Supple, no lymphadenopathy noted. LUNGS: Clear auscultation without wheezes rales or rhonchi. CARDIAC: Regular rate and rhythm without murmur. Pulses is full and equal throughout. BACK: Mild right CVA tenderness noted. ABDOMEN: Positive bowel sounds all 4 quadrants. Soft, nontender to palpation without organomegaly or masses. Medical Decision & Procedures ER Provider Diagnostic Interpretation: ULTRASOUND KIDNEYS AND BLADDER CLINICAL HISTORY: Right flank pain. COMPARISON STUDY: KUB dated 10/03/2017. TECHNIQUE: Real-time, grayscale, and color flow sonography of the kidneys and bladder is performed. Images are reviewed in the transverse and longitudinal planes. FINDINGS: Kidneys: The kidneys are normal in size and echotexture. The right kidney measures 12.3 cm and the left kidney measures 11.6 cm. There is no hydronephrosis. No shadowing renal calculi are identified. There is no sonographic evidence of contour deforming renal mass lesion. No perinephric fluid is identified. Bladder: The bladder is normal in appearance. Bilateral ureteral jets were seen. IMPRESSION: Unremarkable sonographic assessment of the kidneys and bladder. Electronically signed by: Murtaza Moy M.D. 10/03/2017 10:42 AM KUB CLINICAL HISTORY: Right flank pain. FINDINGS: 3 AP supine abdominal radiographs are obtained. No prior studies are available for comparison at the time of dictation. Cholecystectomy clips are noted. There is no bowel obstruction. There is a rectosigmoid fecal impaction and moderate constipation. No evidence of intraperitoneal free air is seen on these supine images. There are no abnormal abdominal calcifications. The bony structures appear intact. IMPRESSION: 1. Rectosigmoid fecal impaction and moderate constipation. 2. No bowel obstruction is seen. 3. There are no abnormal abdominal calcifications. Electronically signed by: Murtaza Moy M.D. 10/03/2017 10:22 AM Laboratory Results 10/03/17 09:45 Red Blood Count 4.94, Mean Corpuscular Volume 86.8, Mean Corpuscular Hemoglobin 28.9, Mean Corpuscular Hemoglobin Concent 33.3, Mean Platelet Volume 9.5, Neutrophils (%) (Auto) 68.0, Lymphocytes (%) (Auto) 23.2, Monocytes (%) (Auto) 6.0, Eosinophils (%) (Auto) 2.5, Basophils (%) (Auto) 0.1, Neutrophils # (Auto) 7.02, Lymphocytes # (Auto) 2.40, Monocytes # (Auto) 0.62, Eosinophils # (Auto) 0.26, Basophils # (Auto) 0.01 10/03/17 09:45 Test 10/03/17 08:24 10/03/17 09:45 Urine Color YELLOW Urine Appearance CLEAR (CLEAR) Urine pH 5.5 (4.5-7.5) Urine Specific Herman 1.005 (1.000-1.030) Urine Protein NEG (NEG) Urine Glucose (UA) NEG (NEG) Urine Ketones NEG (NEG) Urine Occult Blood NEG (NEG) Urine Nitrite NEG (NEG) Urine Bilirubin NEG (NEG) Urine Urobilinogen NEG (NEG) Urine Leukocyte Esterase NEG (NEG) White Blood Count 10.33 K/uL (4.8-10.8) Red Blood Count 4.94 M/uL (4.2-5.4) Hemoglobin 14.3 g/dL (12.0-16.0) Hematocrit 42.9 % (37-47) Mean Corpuscular Volume 86.8 fL (80-100) Mean Corpuscular Hemoglobin 28.9 pg (25-34) Mean Corpuscular Hemoglobin Concent 33.3 g/dl (32-36) Platelet Count 310 K/uL (130-400) Mean Platelet Volume 9.5 fL (7.4-10.4) Neutrophils (%) (Auto) 68.0 % Lymphocytes (%) (Auto) 23.2 % Monocytes (%) (Auto) 6.0 % Eosinophils (%) (Auto) 2.5 % Basophils (%) (Auto) 0.1 % Neutrophils # (Auto) 7.02 K/uL (1.4-6.5) Lymphocytes # (Auto) 2.40 K/uL (1.2-3.4) Monocytes # (Auto) 0.62 K/uL (0.11-0.59) Eosinophils # (Auto) 0.26 K/uL (0-0.5) Basophils # (Auto) 0.01 K/uL (0-0.2) RDW Standard Deviation 43.8 fL (36.4-46.3) RDW Coefficient of Variation 13.9 % (11.5-14.5) Immature Granulocyte % (Auto) 0.2 % Immature Granulocyte # (Auto) 0.02 K/uL (0.00-0.02) Anion Gap 8.0 mmol/L (3-11) Est Creatinine Clear Calc Drug Dose 166.8 ml/min Estimated GFR () 130.2 Estimated GFR (Non- 112.4 BUN/Creatinine Ratio 10.8 (10-20) Calcium Level 9.7 mg/dl (8.5-10.1) Total Bilirubin 0.3 mg/dl (0.2-1) Direct Bilirubin < 0.1 mg/dl (0-0.2) Aspartate Amino Transf (AST/SGOT) 15 U/L (15-37) Alanine Aminotransferase (ALT/SGPT) 19 U/L (12-78) Alkaline Phosphatase 39 U/L (45-117) Total Protein 7.9 gm/dl (6.4-8.2) Albumin 3.7 gm/dl (3.4-5.0) Lipase 124 U/L (73-393) Medications Administered Medications (Trade) Dose Ordered Sig/Anjum Route Start Time Stop Time Status Last Admin Dose Admin Clindamycin Phosphate 600 mg/ Dextrose 54 ml @ 100 mls/hr NOW STAT IV 10/03/17 09:25 10/03/17 09:57 DC 10/03/17 09:54 100 MLS/HR ED Course The patient was evaluated. IV access was obtained. CBC and differential, renal profile, LFTs and lipase levels were ordered. Urinalysis was ordered. Urinalysis was negative. The patient was given clindamycin 600 mg IV. Labs are reviewed and were unremarkable. White count was normal. Renal ultrasound and KUB were ordered interpreted by the radiologist as above without any evidence of hydronephrosis or stone. KUB did reveal fecal impaction and constipation.. A digital rectal exam was performed and there was a large amount of soft stool within the rectum. Patient was discharged home in stable condition. Medical Decision Differential diagnoses include parotidititis, dentalgia, dental abscess Low back pain differential includes constipation, lumbar strain, UTI, ureteral calculi [place] Drug Monitoring Program Search Results: patient reviewed within database Medication Reconcilliation Current Medication List: was personally reviewed by me Blood Pressure Screening Patient's blood pressure: Normal blood pressure Impression Primary Impression: Facial swelling Additional Impressions: Dentalgia Constipation Departure Information Dispostion Home / Self-Care Condition GOOD Prescriptions Clindamycin Hcl (CLINDAMYCIN HCL) 300 Mg Cap 1 TAB PO TID for 10 Days, #30 TAB Prov: Love Glynn PA-C 10/03/17 Referrals No Doctor, Assigned (PCP) Forms HOME CARE DOCUMENTATION FORM, IMPORTANT VISIT INFORMATION Patient Instructions ED Constipation, [facility], Toothache - [facility] Additional Instructions Ibuprofen 600 mg every 6 hours with food for pain. Take clindamycin as prescribed. Follow-up with the dentist as soon as possible for definitive care. Recommend taking a stool softener daily. If you do not have a significant bowel movement within 24 hours recommend fleets enema. Problem Qualifiers Additional Impressions: Constipation Constipation type: unspecified constipation type Qualified Codes: K59.00 - Constipation, unspecified
[2017-10-03 11:50] VITALS: BP 142/82; PULSE 85; O2SAT 98
== END 2017-10-03 11:52 | disposition home or self-care (01) ==
LOC: C.EDB 08:11
DX: K56.41 Fecal impaction (principal); R22.0 Localized swelling, mass and lump, head; K08.89 Other specified disorders of teeth and supporting structures; K02.9 Dental caries, unspecified

== ENCOUNTER 2019-03-27 05:36 | Inpatient (IN) ==
--- NOTE | 2019-03-09 11:30 | Anesthesiology Consultation ---
Date of Service March 09, 2019 Assessment & Plan (1) Encounter for pre-operative examination: Patient's BP elevated (140's systolic x 2) at [facility]. Spoke to Ashanti at Dr. Madison's office prior to patient leaving [facility]. She advised patient come to the OB office for her appointment as scheduled this afternoon. Chart Review Chart Review: Acceptable Risk for Surgery and Patient seen in Pre Admission Testing Teaching & Discussion Instructed NPO after midnight before surgery, except medications with 15 cc of water. Medication instructions provided according to the [facility] guidelines. History Surgery Operation Date: 03/27/19 07:30 Proposed Procedures p Repeat Section Deliverg - Matti Madison MD Height/Weight Height: 5 ft 3 in Weight: 168.283 kg Allergies Allergy/AdvReac Type Severity Reaction Status Date / Time banana Allergy Severe Anaphylaxis Verified 03/07/19 09:18 amoxicillin Allergy Mild Hives Verified 03/07/19 09:18 clarithromycin Allergy Mild vomitting Verified 03/07/19 09:18 Penicillins Allergy Mild Hives Verified 03/07/19 09:18 Medications Home Medications Medication Instructions Recorded Confirmed Last Taken No Known Home Medications 03/07/19 03/07/19 Unknown Past Medical History Medical History (Updated 03/09/19 @ 11:46 by Shree Mandjuano) Morbid obesity No known health problems Exercise / Class Metabolic Activity II 4-5 Yardwork/Stairs/Walk up hill (Denies Cp or SOB with 1 FOS) Past Surgical History Surgical History History of surgery Pt had hematoma/edema on R leg that was removed Hx laparoscopic cholecystectomy Hx of section Hx of wisdom tooth extraction Past Anesthesia History No Hx of Anesthesia Complications and No Family Hx of Anesthesia Complications History of PONV No Hx of PONV and Hx of Motion Sickness (if reading in car) Social History Smoking Status: Never smoker Do You Dip or Chew Tobacco: No Hx Alcohol Use: No Hx Substance Use: No substance use type: does not use Review of Systems Pt denies any recent chest pain, shortness of breath, palpitations, cough, fever or URI. +mild stuffy nose Physical Exam Vital Signs BP: 148/72 on L lower forearm (largest cuff would not fit on upper arm); repeat 142/79 P: 101bpm SPO2: 98% RA T: 98.5 F R: 16 Constitutional + morbidly obese ENMT Mouth: + chipped teeth (bottom L molar); no dental restorations and no loose teeth Thyromental Distance: > or= 3.5 Finger Breadths (4) Mallampati Class: II Crowded tonsils Neck normal visual inspection; neck extension not limited Respiratory normal respiratory effort Auscultation: lungs clear to auscultation bilaterally Cardiovascular Rate/Rhythm: regular rhythm and + tachycardic Heart Sounds: no murmur
[2019-03-27] MEDS ORDERED: LACTATED RINGER'S 1,000 ML IV SCH ×3 (05:45→10:30)
[2019-03-27] MEDS ORDERED: CITRIC ACID/SODIUM CITRATE 15 ML UDC PO SCH (06:00)
[2019-03-27] MEDS ORDERED: CEFAZOLIN 3,000 MG in DEXTROSE 5% 50 ML IV SCH (06:00)
[2019-03-27 06:06] LABS: Basophils # (auto) 0.01 K/uL (0-0.2); Basophils % (auto) 0.1 %; Eosinophils # (auto) 0.11 K/uL (0-0.5); Eosinophils % (auto) 0.6 %; Hemoglobin 12.9 g/dL (12.0-16.0); Immature Granulocytes # (auto) 0.04 K/uL (0.00-0.02); Immature Granulocytes % (auto) 0.2 %; Lymphocytes # (auto) 2.73 K/uL (1.2-3.4); Lymphocytes % (auto) 15.6 %; Mean Corpuscular Hemoglobin 28.6 pg (25-34); Mean Corpuscular Volume 84.3 fL (80-100); Mean Platelet Volume 10.2 fL (7.4-10.4); Monocytes # (auto) 1.11 K/uL (0.11-0.59); Monocytes % (auto) 6.3 %; Neutrophils # (auto) 13.49 K/uL (1.4-6.5); Neutrophils % (auto) 77.2 %; Platelet Count 324 K/uL (130-400); RDW Coefficient of Variation 14.1 % (11.5-14.5); RDW Standard Deviation 43.3 fL (36.4-46.3); Red Blood Count 4.51 M/uL (4.2-5.4); White Blood Count 17.49 K/uL (4.8-10.8)
[2019-03-27 06:12] LABS: Mean Corpuscular Hgb Conc 33.9 g/dL (32-36)
[2019-03-27] MEDS ORDERED: HydrALAZINE HCL 20 MG/ML VIAL ONE (07:29)
[2019-03-27] MEDS ORDERED: HydrALAZINE HCL 20 MG/ML VIAL IV STA (07:31)
--- NOTE | 2019-03-27 07:34 | History & Physical Bridge Note ---
Date of Service March 27, 2019 History & Physical Bridge Note I have examined the patient, reviewed the History & Physical and in the interval since the performance of the History & Physical I have noted the following changes of clinical significance: no changes noted
[2019-03-27] MEDS ORDERED: MoRPHine SULFATE PF 1 MG/ML 10 ML AMP/VIAL ONE (07:38)
[2019-03-27 08:13] LABS: Alanine Aminotransferase 11 U/L (12-78); Albumin Level 2.2 gm/dl (3.4-5.0); Aspartate Aminotransferase 10 U/L (15-37); BUN Creatinine Ratio 12.9 (10-20); Blood Urea Nitrogen 6 mg/dl (7-18); Calcium 8.8 mg/dl (8.5-10.1); Carbon Dioxide 21 mmol/L (21-32); Chloride 109 mmol/L (98-107); Creatinine Clr Calc Pharmacy 274.7 ml/min; Est GFR (African American) > 150.0; Est GFR (Non-African American) 131.6; Glucose 103 mg/dl (70-99); Potassium 3.8 mmol/L (3.5-5.1); Sodium 138 mmol/L (136-145)
[2019-03-27 08:16] LABS: Albumin Globulin Ratio 0.5 (0.9-2); Alkaline Phosphatase 96 U/L (45-117); Bilirubin,Total 0.4 mg/dl (0.2-1); Globulin 4.3 gm/dl (2.5-4.0); Total Protein 6.5 gm/dl (6.4-8.2)
[2019-03-27] MEDS ORDERED: ePHEDrine sulfate 50 MG/ML SYR ONE (08:51)
[2019-03-27] MEDS ORDERED: PHENYLEPHRINE 100MCG/ML 5ML SYR ONE (08:51)
[2019-03-27] MEDS ORDERED: OXYTOCIN 10 UNITS/ML VIAL ONE (08:52)
[2019-03-27] MEDS ORDERED: HYDROmorphone INJ 1 MG/ML SYRINGE IV PRN (08:55)
[2019-03-27] MEDS ORDERED: NALOXONE HCL 0.08 MG in SYRINGE 1.8 ML IV PRN (08:55)
[2019-03-27] MEDS ORDERED: METOCLOPRAMIDE HCL 20 MG in SODIUM CHLORIDE 0.9% 50 ML IV PRN (08:55)
[2019-03-27] MEDS ORDERED: ONDANSETRON INJ 2 MG/ML 2 ML VIAL IV PRN (08:55)
[2019-03-27] MEDS ORDERED: NALBUPHINE HCL INJ 10 MG/ML AMP IV PRN (08:55)
[2019-03-27] MEDS ORDERED: LACTATED RINGER'S 500 ML IV PRN (08:55)
[2019-03-27] MEDS ORDERED: MoRPHine SULFATE 2 MG/ML CARP IV PRN (08:55)
[2019-03-27] MEDS ORDERED: MoRPHine SULFATE PF 1 MG/ML 10 ML AMP/VIAL INT SPINAL ONE (08:55)
[2019-03-27] MEDS ORDERED: NALOXONE HCL 1 MG in SODIUM CHLORIDE 0.9% 1000ML 1,000 ML IV PRN (08:55)
[2019-03-27] MEDS ORDERED: NALOXONE HCL 0.4 MG/1 ML VIAL/CARP IV PRN (08:55)
[2019-03-27] MEDS ORDERED: ePHEDrine sulfate 50 MG/ML AMP IV PRN (08:55)
[2019-03-27] MEDS ORDERED: DiphenhydrAMINE HCL 50 MG/ML VIAL IV PRN (08:55)
[2019-03-27] MEDS ORDERED: PROMETHAZINE HCL 25 MG in SODIUM CHLORIDE 0.9% 50 ML IV PRN (08:55)
[2019-03-27] MEDS ORDERED: MEPERIDINE HCL 25 MG/ML CARP IV PRN (08:55)
[2019-03-27] MEDS ORDERED: NO NARCOTICS OR SEDATIVES SCH (09:00)
[2019-03-27] MEDS ORDERED: SODIUM CHLORIDE 0.9% 1000ML 1,000 ML IV SCH (09:00)
[2019-03-27] MEDS ORDERED: HYDROCORTISONE ACETATE 25 MG SUPP PR PRN (09:43)
[2019-03-27] MEDS ORDERED: SENNA 8.6 MG TAB PO PRN (09:43)
[2019-03-27] MEDS ORDERED: MAGNESIUM HYDROXIDE SUSP 30 ML UDC PO PRN (09:43)
[2019-03-27] MEDS ORDERED: DIPHTHERIA/TETANUS/PERTUSSIS 0.5 ML SYR/VIAL IM ONE (09:43)
[2019-03-27] MEDS ORDERED: SUPERCREAM 0.870% 15 GM JAR EXT PRN (09:43)
[2019-03-27] MEDS ORDERED: BENZOCAINE 20% AER SPR 82.5 GM CAN EXT PRN (09:43)
[2019-03-27] MEDS ORDERED: NYSTATIN EXT PRN (09:48)
[2019-03-27] MEDS ORDERED: TRIAMCIN EXT PRN (09:48)
[2019-03-27] MEDS ORDERED: NYSTATIN/TRIAMCIN OINT 15 GM TUBE EXT PRN (10:37)
[2019-03-27] MEDS: KETOROLAC 30 MG/ML VIAL IV PRN ×2 (10:37→20:27)
[2019-03-27] MEDS ORDERED: miSOPROStoL 200 MCG TAB PR ONE (10:46)
[2019-03-27] MEDS ORDERED: OXYTOCIN 10 UNITS/ML VIAL IM ONE (10:46)
[2019-03-27] MEDS ORDERED: OXYTOCIN 20 UNITS in LACTATED RINGER'S 1,000 ML IV SCH (11:00)
--- NOTE | 2019-03-27 11:06 | Operative Report ---
DATE OF OPERATION: 03/27/2019 This is a delivery note. INDICATION FOR SURGERY: This is a 33-year-old morbidly obese patient, prior section, wishes to have repeat . PREOPERATIVE DIAGNOSES: 1. at term. 2. Morbid obesity. 3. Prior section, wishes to have a repeat section. POSTOPERATIVE DIAGNOSES: 1. at term. 2. Morbid obesity. 3. Prior section, wishes to have a repeat section. PROCEDURE: Repeat . SURGEON: Matti Madison MD. PULP BEATER: Dacia Zavala. ANESTHESIA: Spinal. ANESTHESIOLOGIST IN ATTENDANCE: Dr. Pelletier. ESTIMATED BLOOD LOSS: 800 mL. INTRAVENOUS FLUIDS: 1500 mL. URINE OUTPUT: 75 mL of clear urine at the end of the procedure. FINDINGS: Live in cephalic presentation. Details of the 's information are in the pediatric record. Uterus, tubes, ovaries appeared grossly normal. COMPLICATIONS: None. DRAINS: Cooper catheter. SPECIMEN, PATHOLOGY SENT: Placenta for pathologic analysis. DESCRIPTION OF PROCEDURE: The patient was taken to the operating room where she was prepped and draped in sterile fashion. A timeout was called. A Pfannenstiel incision was made through the old scar and carried down to the fascia with a scalpel. Fascia was incised with a scalpel and extended laterally on both sides. Kochers were used to grab the fascia and the rectus abdominus muscle was sharply dissected off the fascia superiorly and inferiorly. Peritoneum was identified, grabbed with 2 mosquito clamps and the abdomen was entered sharply. Once inside the abdomen, the findings were as dictated above. An Oliver retractor was used for retraction. Lower segment of the uterus was identified. Vesicouterine peritoneum was sharply dissected off the lower segment of the uterus. Transverse incision was made in the uterus and extended laterally on both sides with bandage scissors. Infant's head was delivered. There was no nuchal cord. The infant was delivered. Cord was clamped and cut and handed over to the pediatric team. Details of the 's information are in the pediatric record. The uterus was exteriorized and cleared of all clots and debris. Uterus was closed in 2 layers using Vicryl stitch. Copious amount of irrigation was used to irrigate the abdomen. There was good hemostasis of the uterine incision. Both ovaries, tubes appeared grossly normal. Uterus was returned into the abdominal cavity. Once again, hemostasis was obtained. The Oliver retractor is removed. Peritoneum was approximated using plain suture. Fascia was closed using PDS suture. SubQ space was irrigated and closed with plain suture. Skin was closed with inna. All instruments were removed from the abdomen and accounted for x2. The patient and baby are doing well in the recovery. I attest to the content of the Intraoperative Record and any orders documented therein. Any exception s are noted below.
[2019-03-27] MEDS: SIMETHICONE 80 MG CHEW PO SCH ×3 (15:36→20:31)
--- NOTE | 2019-03-27 16:02 | Anesthesiology Progress Note ---
Date of Service March 27, 2019 Anesthesia Post Procedure Vital Signs Vital Signs: Temp Pulse Pulse Resp BP BP Pulse Ox 03/27/19 12:40 18 95 03/27/19 12:17 93 H 152/75 H 94 03/27/19 12:16 97 H 96 03/27/19 12:11 93 H 96 03/27/19 12:07 96 H 20 150/70 H 03/27/19 12:06 98 H 96 03/27/19 12:01 98 H 97 03/27/19 11:57 97 H 123/58 L 03/27/19 11:56 86 97 03/27/19 11:51 99 H 96 03/27/19 11:47 102 H 123/57 L 03/27/19 11:46 99 H 96 03/27/19 11:41 110 H 95 03/27/19 11:37 36.3 C L 93 H 20 148/71 H 03/27/19 11:36 98 H 97 03/27/19 11:31 111 H 95 03/27/19 11:27 92 H 156/79 H 94 03/27/19 11:26 101 H 95 03/27/19 11:21 101 H 96 03/27/19 11:17 95 H 131/61 03/27/19 11:16 103 H 96 03/27/19 11:11 99 H 96 03/27/19 11:09 102 H 163/72 H 03/27/19 11:07 20 03/27/19 11:06 108 H 96 03/27/19 11:01 103 H 96 03/27/19 10:57 100 H 127/60 03/27/19 10:56 102 H 97 03/27/19 10:52 91 H 22 133/67 98 03/27/19 10:51 103 H 97 03/27/19 10:48 110 H 94 03/27/19 10:47 106 H 134/92 03/27/19 10:46 97 H 98 03/27/19 10:41 88 96 03/27/19 10:37 36.4 C L 90 90 20 127/79 127/79 96 03/27/19 10:36 95 H 96 03/27/19 10:31 99 H 96 03/27/19 10:27 99 H 22 126/78 03/27/19 10:26 102 H 98 03/27/19 10:21 98 H 97 03/27/19 10:17 101 H 22 126/76 03/27/19 10:16 104 H 97 03/27/19 10:11 97 H 97 03/27/19 10:08 97 H 20 125/87 03/27/19 10:06 99 H 97 03/27/19 10:01 93 H 97 03/27/19 09:57 91 H 133/67 03/27/19 09:56 95 H 98 03/27/19 09:51 116 H 99 03/27/19 09:47 88 88 20 131/72 131/72 98 03/27/19 09:46 91 H 98 03/27/19 09:45 110 H 90 03/27/19 09:41 94 H 98 03/27/19 09:37 36.4 C L 105 H 105 H 20 127/97 127/97 98 03/27/19 09:36 105 H 98 03/27/19 07:34 103 H 20 164/87 H 03/27/19 07:17 36.9 C 122 H 22 195/112 H 03/27/19 06:36 108 H 136/102 H 03/27/19 06:10 110 H 138/91 03/27/19 05:57 36.7 C 20 03/27/19 05:50 36.7 C 116 H 20 173/99 H Pain Intensity Abdomen: Pain Intensity: 0 Transfer of Care Handoff Completed per policy Notes Mental Status: alert / awake / arousable and participated in evaluation Patient Amnestic to Procedure: Yes Nausea / Vomiting: adequately controlled Pain: adequately controlled Airway Patency, RR, SpO2: stable & adequate BP & HR: stable & adequate Hydration State: stable & adequate Neuraxial Anesthesia: was administered and sensory block resolved Anesthetic Complications: no major complications apparent
[2019-03-27] MEDS: DOCUSATE SODIUM 100 MG CAP PO SCH (20:31)
[2019-03-28] MEDS: KETOROLAC 30 MG/ML VIAL IV PRN (02:21)
[2019-03-28] MEDS ORDERED: ONDANSETRON INJ 2 MG/ML 2 ML VIAL IV PRN (02:55)
[2019-03-28] MEDS ORDERED: DC INTRASPINAL MORPHINE ONE (02:55)
[2019-03-28] MEDS ORDERED: PROMETHAZINE HCL 25 MG in SODIUM CHLORIDE 0.9% 50 ML IV PRN (02:55)
[2019-03-28] MEDS ORDERED: DiphenhydrAMINE HCL 50 MG/ML VIAL IV PRN (02:55)
[2019-03-28] MEDS: OXYCODONE/ACETAMINOPHEN 5mg/325mg TAB PO PRN ×4 (04:23→19:52)
[2019-03-28] MEDS: IBUPROFEN 600 MG TAB PO PRN ×4 (04:23→19:51)
[2019-03-28 06:38] LABS: Basophils # (auto) 0.01 K/uL (0-0.2); Basophils % (auto) 0.1 %; Eosinophils # (auto) 0.15 K/uL (0-0.5); Eosinophils % (auto) 1.1 %; Hemoglobin 10.4 g/dL (12.0-16.0); Immature Granulocytes # (auto) 0.04 K/uL (0.00-0.02); Immature Granulocytes % (auto) 0.3 %; Lymphocytes # (auto) 2.15 K/uL (1.2-3.4); Lymphocytes % (auto) 15.6 %; Mean Corpuscular Hemoglobin 28.1 pg (25-34); Mean Corpuscular Hgb Conc 33.5 g/dL (32-36); Mean Corpuscular Volume 83.8 fL (80-100); Mean Platelet Volume 9.8 fL (7.4-10.4); Monocytes # (auto) 0.96 K/uL (0.11-0.59); Neutrophils # (auto) 10.47 K/uL (1.4-6.5); Neutrophils % (auto) 75.9 %; Platelet Count 291 K/uL (130-400); RDW Coefficient of Variation 14.4 % (11.5-14.5); RDW Standard Deviation 44.5 fL (36.4-46.3); White Blood Count 13.78 K/uL (4.8-10.8)
[2019-03-28] MEDS: DOCUSATE SODIUM 100 MG CAP PO SCH ×2 (08:32→19:52)
[2019-03-28] MEDS: FERROUS SULFATE 325 MG TAB PO SCH (08:32)
[2019-03-28] MEDS: SIMETHICONE 80 MG CHEW PO SCH ×4 (08:32→19:51)
[2019-03-28] MEDS: PRENATAL VITAMIN 1 TAB PO SCH (08:33)
[2019-03-28] MEDS: ENOXAPARIN INJ 40 MG/0.4 ML SYR SQ SCH (09:00)
--- NOTE | 2019-03-28 10:46 | Obstetrical Progress Note ---
Date of Service March 28, 2019 Assessment & Plan Admission and Anticipated Discharge Date Admission Date: March 27, 2019 Physical Exam Physical Exam: abdomen soft and non tender bowel sounds are normal passing flatus incision is clean drain functioning well vaginal bleeding scant hgb 10.4 Results & Data ([facility]) Vital Signs (Past 12 Hours) Vital Signs Temp Pulse Resp BP Pulse Ox 03/28/19 07:47 36.6 C 87 20 138/82 97 03/28/19 03:30 36.9 C 105 H 18 132/84 03/28/19 03:00 20 97 03/28/19 02:00 20 96 03/28/19 01:00 18 95 03/28/19 00:00 20 97 03/27/19 23:23 36.7 C 108 H 20 126/78 97 03/27/19 23:00 20 97
[2019-03-28] MEDS ORDERED: bisacodyL 5 MG TABEC PO SCH (20:00)
[2019-03-28] MEDS ORDERED: Nursing to Pharmacy Communication ONE (21:01)
[2019-03-28] MEDS ORDERED: NYSTATIN POWDER 15GM BTL EXT PRN (21:06)
[2019-03-29] MEDS: IBUPROFEN 600 MG TAB PO PRN ×4 (00:52→20:41)
[2019-03-29] MEDS: OXYCODONE/ACETAMINOPHEN 5mg/325mg TAB PO PRN ×4 (00:53→20:42)
[2019-03-29 06:42] LABS: Hematocrit (blood only) 32.3 % (37-47); Hemoglobin 10.6 g/dL (12.0-16.0)
[2019-03-29] MEDS: DOCUSATE SODIUM 100 MG CAP PO SCH ×2 (08:23→20:50)
[2019-03-29] MEDS: PRENATAL VITAMIN 1 TAB PO SCH (08:23)
[2019-03-29] MEDS: SIMETHICONE 80 MG CHEW PO SCH ×4 (08:23→20:50)
[2019-03-29] MEDS: FERROUS SULFATE 325 MG TAB PO SCH (08:23)
[2019-03-29] MEDS: ENOXAPARIN INJ 40 MG/0.4 ML SYR SQ SCH ×2 (08:27→09:28)
--- NOTE | 2019-03-29 08:54 | Anesthesiology Progress Note ---
Date of Service March 29, 2019 Anesthesia Post Procedure Vital Signs Vital Signs: Temp Pulse Resp BP Pulse Ox 03/29/19 08:47 141/95 H 03/29/19 07:29 36.6 C 106 H 22 98 03/29/19 00:15 37.2 C 106 H 18 128/84 03/28/19 19:25 36.9 C 111 H 16 118/83 03/28/19 15:58 36.6 C 100 H 18 139/72 97 Pain Intensity Abdomen: Pain Intensity: 0 Transfer of Care Handoff Completed per policy Notes Mental Status: alert / awake / arousable Patient Amnestic to Procedure: Yes Nausea / Vomiting: adequately controlled Pain: adequately controlled Airway Patency, RR, SpO2: stable & adequate BP & HR: stable & adequate Hydration State: stable & adequate Neuraxial Anesthesia: was administered and sensory block resolved Anesthetic Complications: no major complications apparent and Pt Satisfied with anesthetic care
[2019-03-29] MEDS ORDERED: bisacodyL 10 MG SUPP PR PRN (09:43)
--- NOTE | 2019-03-29 10:38 | Obstetrical Progress Note ---
Date of Service March 29, 2019 Assessment & Plan (1) delivery delivered: A/p C/sec day #2 pt doing well Morbid obesity: discussed risk of VTE- Pt now agrees to Lovenox anticipate disch tomorrow Subjective Ambulation: ambulating normally Voiding: no voiding problems Passing Gas:: Yes Diet Tolerance:: regular diet Lochia:: Small Feeding Type:: breast feeding Review of Systems All systems reviewed & are unremarkable except as noted in HPI & below Physical Exam Constitutional WD/WN, vitals as above well developed and well nourished Eyes PERRL, conjunctivae normal, anicteric sclerae Neck trachea midline, no thyromegaly Respiratory normal respiratory effort, lungs clear to auscultation Auscultation: no crackles, no rales and no wheezes Cardiovascular RRR, no murmur, no edema Gastrointestinal (Abdomen) normal bowel sounds, soft, nontender, no hepatosplenomegaly Uterus is below umbilicus Musculoskeletal no cyanosis or clubbing, extremities motor strength 5/5 Skin no rashes, warm and dry Neurologic patellar DTR's 2+ bilat, sensation intact Psychiatric A+Ox3, euthymic affect Genitourinary normal external appearance Results & Data Vital Signs (Past 12 Hours) Vital Signs Temp Pulse Resp BP Pulse Ox 03/29/19 08:47 141/95 H 03/29/19 07:29 36.6 C 106 H 22 98 03/29/19 00:15 37.2 C 106 H 18 128/84
[2019-03-29] MEDS: LABETALOL HCL 200 MG TAB PO SCH ×2 (14:20→20:50)
[2019-03-30] MEDS: IBUPROFEN 600 MG TAB PO PRN ×4 (01:09→13:19)
[2019-03-30] MEDS: OXYCODONE/ACETAMINOPHEN 5mg/325mg TAB PO PRN ×3 (04:25→13:18)
[2019-03-30] MEDS: DOCUSATE SODIUM 100 MG CAP PO SCH (08:36)
[2019-03-30] MEDS: SIMETHICONE 80 MG CHEW PO SCH (08:36)
[2019-03-30] MEDS: ENOXAPARIN INJ 40 MG/0.4 ML SYR SQ SCH (08:36)
[2019-03-30] MEDS: FERROUS SULFATE 325 MG TAB PO SCH (08:36)
[2019-03-30] MEDS: PRENATAL VITAMIN 1 TAB PO SCH (08:36)
[2019-03-30] MEDS: LABETALOL HCL 200 MG TAB PO SCH (08:49)
[2019-03-30 10:03] VITALS: BP 134/91; PULSE 91; TEMP 97.9; O2SAT 98
--- NOTE | 2019-03-30 12:40 | Obstetrical Progress Note ---
Date of Service March 30, 2019 Assessment & Plan Admission and Anticipated Discharge Date Admission Date: March 27, 2019 Subjective Patient is seen and examined. She feels well, no complaints. Likes to be discharged Pain is under control with oral meds. Ambulating without dizziness Voiding without difficulty Tolerating regular diet with out N&V Flatus + BM + Bleeding is minimal No fever/ chills/ CP/ SOB/ N&V/ Leg pain Breast feeding without problems Vital Signs Temp Pulse Pulse Resp BP Pulse Ox 03/30/19 08:50 36.6 C 91 H 20 134/91 98 03/30/19 00:50 36.7 C 107 H 17 102/71 97 03/29/19 20:40 37.1 C 115 H 18 144/93 H 98 03/29/19 15:35 37.0 C 110 H 18 127/77 96 Lab Results 03/27/19 03/27/19 03/27/19 Range/Units 05:44 05:50 05:50 WBC 17.49 H (4.8-10.8) K/uL RBC 4.51 (4.2-5.4) M/uL Hgb 12.9 (12.0-16.0) g/dL Hct 38.0 (37-47) % MCV 84.3 (80-100) fL MCH 28.6 (25-34) pg MCHC 33.9 (32-36) g/dL RDW Std Deviation 43.3 (36.4-46.3) fL RDW Coeff of Ferny 14.1 (11.5-14.5) % Plt Count 324 (130-400) K/uL MPV 10.2 (7.4-10.4) fL Immature Gran % (Auto) 0.2 % Neut % (Auto) 77.2 % Lymph % (Auto) 15.6 % [place] % (Auto) 6.3 % Eos % (Auto) 0.6 % Baso % (Auto) 0.1 % Immature Gran # (Auto) 0.04 H (0.00-0.02) K/uL Neut # (Auto) 13.49 H (1.4-6.5) K/uL Lymph # (Auto) 2.73 (1.2-3.4) K/uL [place] # (Auto) 1.11 H (0.11-0.59) K/uL Eos # (Auto) 0.11 (0-0.5) K/uL Baso # (Auto) 0.01 (0-0.2) K/uL Sodium (136-145) mmol/L Potassium (3.5-5.1) mmol/L Chloride (98-107) mmol/L Carbon Dioxide (21-32) mmol/L Anion Gap (3-11) BUN (7-18) mg/dl Creatinine (0.6-1.2) mg/dl Est Cr Clr Drug Dosing ml/min Est GFR ( Amer) Est GFR (Non-Af Amer) BUN/Creatinine Ratio (10-20) Glucose (70-99) mg/dl Calcium (8.5-10.1) mg/dl Total Bilirubin (0.2-1) mg/dl AST (15-37) U/L ALT (12-78) U/L Alkaline Phosphatase (45-117) U/L Lactate Dehydrogenase (84-246) U/L Total Protein (6.4-8.2) gm/dl Albumin (3.4-5.0) gm/dl Globulin (2.5-4.0) gm/dl Albumin/Globulin Ratio (0.9-2) Nasal Screen MRSA (PCR) Negative (Negative) Blood Type O Positive Antibody Screen NEGATIVE 03/27/19 03/27/19 03/28/19 Range/Units 07:42 07:42 06:13 WBC 13.78 H (4.8-10.8) K/uL RBC 3.70 L (4.2-5.4) M/uL Hgb 10.4 L (12.0-16.0) g/dL Hct 31.0 L (37-47) % MCV 83.8 (80-100) fL MCH 28.1 (25-34) pg MCHC 33.5 (32-36) g/dL RDW Std Deviation 44.5 (36.4-46.3) fL RDW Coeff of Ferny 14.4 (11.5-14.5) % Plt Count 291 (130-400) K/uL MPV 9.8 (7.4-10.4) fL Immature Gran % (Auto) 0.3 % Neut % (Auto) 75.9 % Lymph % (Auto) 15.6 % [place] % (Auto) 7.0 % Eos % (Auto) 1.1 % Baso % (Auto) 0.1 % Immature Gran # (Auto) 0.04 H (0.00-0.02) K/uL Neut # (Auto) 10.47 H (1.4-6.5) K/uL Lymph # (Auto) 2.15 (1.2-3.4) K/uL [place] # (Auto) 0.96 H (0.11-0.59) K/uL Eos # (Auto) 0.15 (0-0.5) K/uL Baso # (Auto) 0.01 (0-0.2) K/uL Sodium 138 (136-145) mmol/L Potassium 3.8 (3.5-5.1) mmol/L Chloride 109 H (98-107) mmol/L Carbon Dioxide 21 (21-32) mmol/L Anion Gap 9.0 (3-11) BUN 6 L (7-18) mg/dl Creatinine 0.46 L (0.6-1.2) mg/dl Est Cr Clr Drug Dosing 274.7 ml/min Est GFR ( Amer) > 150.0 Est GFR (Non-Af Amer) 131.6 BUN/Creatinine Ratio 12.9 (10-20) Glucose 103 H (70-99) mg/dl Calcium 8.8 (8.5-10.1) mg/dl Total Bilirubin 0.4 (0.2-1) mg/dl AST 10 L (15-37) U/L ALT 11 L (12-78) U/L Alkaline Phosphatase 96 (45-117) U/L Lactate Dehydrogenase 149 (84-246) U/L Total Protein 6.5 (6.4-8.2) gm/dl Albumin 2.2 L (3.4-5.0) gm/dl Globulin 4.3 H (2.5-4.0) gm/dl Albumin/Globulin Ratio 0.5 L (0.9-2) Nasal Screen MRSA (PCR) (Negative) Blood Type Antibody Screen 03/29/19 Range/Units 06:20 WBC (4.8-10.8) K/uL RBC (4.2-5.4) M/uL Hgb 10.6 L (12.0-16.0) g/dL Hct 32.3 L (37-47) % MCV (80-100) fL MCH (25-34) pg MCHC (32-36) g/dL RDW Std Deviation (36.4-46.3) fL RDW Coeff of Ferny (11.5-14.5) % Plt Count (130-400) K/uL MPV (7.4-10.4) fL Immature Gran % (Auto) % Neut % (Auto) % Lymph % (Auto) % [place] % (Auto) % Eos % (Auto) % Baso % (Auto) % Immature Gran # (Auto) (0.00-0.02) K/uL Neut # (Auto) (1.4-6.5) K/uL Lymph # (Auto) (1.2-3.4) K/uL [place] # (Auto) (0.11-0.59) K/uL Eos # (Auto) (0-0.5) K/uL Baso # (Auto) (0-0.2) K/uL Sodium (136-145) mmol/L Potassium (3.5-5.1) mmol/L Chloride (98-107) mmol/L Carbon Dioxide (21-32) mmol/L Anion Gap (3-11) BUN (7-18) mg/dl Creatinine (0.6-1.2) mg/dl Est Cr Clr Drug Dosing ml/min Est GFR ( Amer) Est GFR (Non-Af Amer) BUN/Creatinine Ratio (10-20) Glucose (70-99) mg/dl Calcium (8.5-10.1) mg/dl Total Bilirubin (0.2-1) mg/dl AST (15-37) U/L ALT (12-78) U/L Alkaline Phosphatase (45-117) U/L Lactate Dehydrogenase (84-246) U/L Total Protein (6.4-8.2) gm/dl Albumin (3.4-5.0) gm/dl Globulin (2.5-4.0) gm/dl Albumin/Globulin Ratio (0.9-2) Nasal Screen MRSA (PCR) (Negative) Blood Type Antibody Screen PE: General: Alert, orientedx3, NAD CVS: S1S2 RRR Lungs; CTAB Abd: soft, NT, ND, BS+, fundus firm, below Umbilicus Incision/ GROVER Dressing: Clean, dry, intact Perineum intact, Lochia rubra minimal Ext; NT, no edema AP: 33 yo s/p C Section, pod# 3 VSS Afebrile doing well Continue routine postop care Encourage ambulation, PO intake All questions were answered Discussed when to call Continue Lovenox for 6 weeks D/C home , f/u in office Results & Data ([facility]) Vital Signs (Past 12 Hours) Vital Signs Temp Pulse Pulse Resp BP Pulse Ox 03/30/19 08:50 36.6 C 91 H 20 134/91 98 03/30/19 00:50 36.7 C 107 H 17 102/71 97
--- NOTE | 2019-04-01 22:42 | Discharge Summary ---
HISTORY OF PRESENT ILLNESS: This is a 33-year-old G4, P1, due date 03/28/2019, who was 39 weeks and 6 days on 03/27/2019. Presented to labor and delivery for scheduled repeat section. The patient underwent section and delivered a live infant. Details of surgery and pediatric information are in the respective records. The patient met all milestones in recovery on postop day 1 and day 2. The patient was discharged home on 03/30/2019 in stable condition. The patient was morbidly obese and while here was encouraged to receive Lovenox for DVT and PE prophylaxis. She was able to ambulate and significance of ambulation post discharge was emphasized to the patient. At time of discharge, hemoglobin was 10.6, hematocrit was 32.3. PAST MEDICAL HISTORY: History of MRSA and depression. PAST SURGICAL HISTORY: History of previous section, dental surgery, and ankle surgery. FAMILY HISTORY: Noncontributory. ALLERGIES: THE PATIENT IS ALLERGIC TO PENICILLIN, CLARITHROMYCIN, AMOXICILLIN, AND BANANAS. REVIEW OF SYSTEMS: Negative except under HPI. PHYSICAL EXAMINATION: GENERAL: Well-developed, well-nourished, obese white female in no acute distress. HEART: S1, S2, regular rhythm and rate. LUNGS: Clear to auscultation bilaterally. ABDOMEN: Nontender, nondistended, positive bowel sounds. Incision is clean, dry and intact. The patient had candidiasis on the pannus which was being treated with nystatin powder. The patient also had GROVER dressing because of obesity and increased risk of wound infection. LABORATORY DATA: As stated above, hemoglobin was 10.6, hematocrit was 32.3 at time of discharge. The patient also was worked up for preeclampsia because of elevated blood pressure. LFTs were normal. She was then started on labetalol 200 b.i.d. for elevated blood pressures. CONDITION ON DISCHARGE: Stable. OPERATION: Repeat section. DISCHARGE DIAGNOSES: Repeat section, morbid obesity, and hypertension. PLAN ON DISCHARGE: The patient is discharged home with instructions regarding activity, diet, followup appointment, increased ambulation, as well as medication for blood pressure.
--- NOTE | 2019-04-05 07:58 | Coding Query ---
CODING QUERY To promote full compliance with coding requirements relating to patient care, provider participation is requested in all cases of trimming cutter machine uncertainty. Please assist us with the question(s) below: Coding Question(s): Dr. Madison, Per the discharge summary, the patient had elevated blood pressures this admission and was worked up for pre-eclampsia. Please clarify if the patient's diagnosis is: ( ) pre-eclampsia ( ) mild pre-eclampsia ( ) moderate pre-eclampsia ( ) severe pre-eclampsia ( ) HELLP ( x) other, please explain ( ) gestational hypertension ( ) pre-existing hypertension ( x ) transient hypertension ( ) elevated blood pressure only, not hypertension ( ) other, please explain Was the condition POA? ( ) Yes ( ) No Also, the patient was noted to have Candidiasis of the pannus. Was this condition: ( ) POA ( ) Not POA ( ) Unable to determine ( ) Other, please explain Physician's Response(s): Thank you for your time, AMEENA Zarate, EXPERIMENT[employer] WORK[employer]
== END 2019-03-30 14:50 | disposition home or self-care (01) | DRG 787 ==
LOC: 4S1 05:36 → EDSTATUS 07:30 → 4S2 13:00
DX: Z88.1 Allergy status to other antibiotic agents; Z91.018 Allergy to other foods; Z37.0 Single live birth; Z86.59 Personal history of other mental and behavioral disorders; Z3A.39 39 weeks gestation of pregnancy; N85.8 Other specified noninflammatory disorders of uterus; B37.2 Candidiasis of skin and nail; O98.83 Other maternal infectious and parasitic diseases complicating the puerperium; E66.01 Morbid (severe) obesity due to excess calories; O99.214 Obesity complicating childbirth; Z88.0 Allergy status to penicillin; O34.219 Maternal care for unspecified type scar from previous cesarean delivery; Z86.14 Personal history of Methicillin resistant Staphylococcus aureus infection; O13.4 Gestational [pregnancy-induced] hypertension without significant proteinuria, complicating childbirth